=== PATIENT | female | born 1960 | race Caucasian/White ===

== ENCOUNTER 2022-10-28 08:06 | Day surgery (SDC) | payer BC, SELFPAY ==
[2022-10-28] VITALS (11 sets, daily range): BP systolic 99–148; BP diastolic 66–97; PULSE 50–68; RESP 14–16; TEMP 36.2–36.7; O2SAT 93–95; BMI 36.7
[2022-10-28] MEDS: LACTATED RINGERS 1000 ML 1,000 ML 100 ML IV (09:00)
[2022-10-28] MEDS: SODIUM CHLORIDE 0.9 % (FLUSH) 10 ML SYRINGE IVF (09:31)
[2022-10-28] MEDS: CEFAZOLIN 2 GM in 0.9 % SODIUM CHLORIDE Mini-bag 100 ML IVPB (11:45)
--- NOTE | 2022-10-28 12:23 | PM.ORPRC ---
Procedure Note Date of procedure: 10/28/22 Procedure: PREOPERATIVE DIAGNOSIS: 1. Left knee medial meniscus tear POSTOPERATIVE DIAGNOSIS: 1. Left knee medial meniscus tear 2. 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 Left knee arthroscopic partial medial menisectomy 2. Left knee chondroplasty patellofemoral and medial compartments SURGEON: Paco Diaz M.D. IRRIGATOR: Francisco Javier Santiago PA-C. Of note, an speech language pathology assistant was critical for this case to aid in patient positioning, knee manipulation, instrument exchange, and closure. ANESTHESIA: Spinal EBL: 2ml TOURNIQUET: 20 minutes at 300 torr COMPLICATIONS: None evident INDICATIONS: The patient is a pleasant 62-year-old female who has experienced left knee pain particularly with any twisting or turning. Physical exam was concerning for medial meniscus tear, this was confirmed on MRI. Additionally, attempted nonoperative management has been tried, and failed. Thus, surgery was recommended. FINDINGS: Complex tearing of the posterior horn to midbody medial meniscus. While the posterior root had a majority still intact, there was essentially complete radial tear at the posterior horn/root junction. There is grade 3 chondromalacia broadly through the medial femoral condyle on the weight-bearing portion and extending more anterior. Some loose chondral flaps were present in this region. Lateral compartment showed healthy articular cartilage and intact lateral meniscus. ACL was present, but not is normal femoral attachment. It looks like it had fallen down and laid along the tibia. PCL was intact robust. Patellofemoral compartment showed grade 3-4 chondromalacia patella median ridge and medial facet. Also loose chondral flaps in this area as well as along the medial trochlea. DESCRIPTION OF PROCEDURE: After a thorough discussion of risks, benefits, and alternatives, the patient was brought to the operating room and placed upon the operating table. Induction of anesthesia was undertaken as previously noted. 2g iv Ancef was administered within 1 hr of incision preoperatively. Appropriate time-out was performed identifying proper patient, site, and procedure. The left lower extremity was prepped and draped in the appropriate sterile fashion using ChloraPrep. The limb was exsanguinated and tourniquet inflated. Anterolateral and anteromedial portals were established with an 11 blade, and a diagnostic arthroscopy was performed. This identified the findings as noted above. Following the diagnostic arthroscopy, a partial medial menisectomy was performed with the combination of basket forceps and a motorized shaver. Following this, the meniscus was re-probed and found to be stable. Approximately 25-30 % of the overall meniscus required resection. At this stage, the shaver was reinserted into the suprapatellar pouch and all remaining meniscal debris was evacuated. Instruments were removed, excess fluid was drained, and closure performed with 4-0 Monocryl with Steri-Strips. Dressings were applied, the tourniquet deflated, and the patient was awoken from anesthesia and transferred to the PACU in stable condition. PLAN: 1. Weightbear as tolerated operative extremity. Crutch / walker ambulation assistance PRN. Straight leg raise to be initiated starting tomorrow by the patient. 2. Ice, acetominophen and/or ibuprofen, and Percocet for pain as needed. 3. Knee range of motion and quad sets/straight leg raise regularly 4. Follow up with PA visit in 7-10 days. for a wound check. Initiate physical therapy at that time p.r.n.
[2022-10-28] MEDS: ROPIVACAINE 0.5% 30 ML 150 MG INJECTION (12:26)
--- NOTE | 2022-10-28 12:38 | W.ANESCHARGE ---
Anesthesia Charges Start Date/Time Anesthesia Start Date: 10/28/22 Anesthesia Start Time: 11:42 Stop Date/Time Anesthesia Stop Date: 10/28/22 Anesthesia Stop Time: 12:40 Summary Emergency: No
--- NOTE | 2022-10-28 13:58 | W.ANESCHARGE ---
Anesthesia Charges Start Date/Time Anesthesia Start Date: 10/28/22 Anesthesia Start Time: 11:42 Stop Date/Time Anesthesia Stop Date: 10/28/22 Anesthesia Stop Time: 12:40 Summary Emergency: No
== END 2022-10-28 14:22 | disposition home or self-care (01) ==
PROVIDERS: PCP Physician Assistant Medical; Visit Provider Orthopaedic Surgery Sports Medicine
PROC: (CPT 29870; principal; 2022-10-28 09:45)
DX: S83.232A Complex tear of medial meniscus, current injury, left knee, initial encounter (principal); M94.262 Chondromalacia, left knee
CPT/HCPCS: 29881; 01400; J0690; J1100; J2250; J2400; J2405; J2704; J2795; J3010; J7120

== ENCOUNTER 2023-01-04 11:13 | Emergency (ER) | payer BC, SELFPAY ==
[2023-01-04] VITALS (16 sets, daily range): BP systolic 125–143; BP diastolic 79–87; PULSE 52–71; RESP 18; TEMP 36.4; O2SAT 93–99; BMI 37.5
--- NOTE | 2023-01-04 12:01 | ED.GENADULT ---
HPI - General Adult General Time Seen by Provider: 12:01 Date Seen: 01/04/23 Chief complaint: Extremity Pain/Injury, Lower Stated complaint: Blood clot check Time Seen by Provider: 01/04/23 11:26 Source: patient, RN notes reviewed and old records reviewed Mode of arrival: ambulatory Limitations: no limitations History of Present Illness HPI narrative: Gabbi is a very pleasant 62-year-old female who is status post knee surgery 2 months ago an has had a recent airplane flight who comes to the emergency room with complaints of chest pain shortness of breath and lower extremity edema. Patient notes that she had unusual fluid retention and edema in her legs after she had flown to floor to 2 weeks ago. She flew back last WednesdayDecember 29 and although the edema has improved somewhat she still has some calf discomfort. She notes today that going up and down steps that she is more short of breath than normal and has chest pain when this occurs. She has no chest pain at rest. She states that she has had some mild congestion, mild cough but that has been going on for a couple weeks. She did do a COVID test this morning and it was negative. She denies a fever, vomiting, lightheadedness, dysuria. She has not had history of DVT in the past. She is currently on amlodipine and torsemide for her blood pressure. She has not had stress test in the past. She does feel like her heart is occasionally racing and pounding very hard. She denies hemoptysis or significant shortness of breath at rest. She is sleeping normally and does not need extra pillows or to be sitting up in order to sleep. No known recent exposures to illness but again recent travel. Related Data Home Medications Medication Instructions Recorded Confirmed amlodipine 5 mg tablet 5 mg PO DAILY 05/08/22 01/04/23 paroxetine HCl 20 mg tablet 20 mg PO DAILY 05/08/22 01/04/23 torsemide 10 mg tablet 10 mg PO DAILY 05/08/22 01/04/23 zolpidem 5 mg tablet 5 mg PO PRN 05/08/22 11/04/22 Previous Rx's Medication Instructions Recorded apixaban 5 mg tablet (Eliquis) 10 mg PO BID 7 days #60 tabs 01/04/23 azithromycin 250 mg tablet 250 mg PO DAILY #6 tabs 01/04/23 (Zithromax Z-Chema) Allergies Allergy/AdvReac Type Severity Reaction Status Date / Time nickel Allergy Unknown Verified 01/04/23 11:53 Review of Systems Status of ROS: Reports: 10 or more systems reviewed and unremarkable except as noted in History and below Const: Denies: fever, chills or fatigue Eyes: Denies: blurry vision ENMT: Denies: throat pain, neck pain, throat swelling or difficulty swallowing Cardio: Reports: chest pain, edema, swelling of feet/ankles and shortness of breath with exertion; Denies: palpitations, lightheadedness or shortness of breath when lying down Resp: Reports: shortness of breath GI: Denies: abdominal pain, nausea, vomiting, diarrhea or difficulty swallowing Musculo: Reports: extremity swelling; Denies: back pain, neck pain or extremity pain Integ/Breast: Reports: redness (Recent sunburn); Denies: rash or itching Neuro: Denies: headache, numbness in extremities or weakness in extremities Psych: Reports: anxiety (Recent . of cardiac cause) Endo: Denies: fatigue Allergy/Immuno: Denies: throat swelling PFSH PFSH Medical History Hypertension Surgical History H/O left wrist surgery Status post medial meniscectomy of knee (10/28/22) Family History Sister Colorectal cancer Paternal Grandfather Diabetes Paternal Grandmother Ovarian cancer Son Cancer Mother Diabetes High blood pressure Father High blood pressure Social History Smoking Status: Never smoker Do you use any of these nicotine containing products: None Second hand tobacco smoke exposure: No How often do you have a drink containing alcohol: 2-3 times a week How many standard drinks containing alcohol do you have on a typical day: 1 or 2 AUDIT-C Alcohol total score: 3 Non-prescribed substance use: denies use Caffeine: Yes (daily coffee) Exam Narrative: Exam Narrative: Patient is alert and oriented. External ears eyes nose clear. Appropriate speech in content. Neck is supple. No lymphadenopathy. Heart with a regular rate and rhythm. A kit occasional additional systole with compensatory pause. Lungs are clear with some slightly decreased breath sounds in the left lower base. Abdomen soft nontender. Lower extremity show 1+ edema. Tenderness noted in the upper calves bilaterally. Moving all extremities with good coordination. Const: Vital Signs, click to edit/add: Vital Signs - 24 hr 01/04/23 11:47 01/04/23 13:43 01/04/23 13:45 Temperature 97.5 F L Pulse Rate 64 58 L Pulse Rate [Right Pulse Oximeter] 71 Respiratory Rate 18 Blood Pressure Blood Pressure [Ri ght Upper Arm] 129/87 Pulse Oximetry 94 95 94 Oxygen Delivery Me thod Room Air Room Air 01/04/23 14:00 01/04/23 14:02 01/04/23 14:28 Temperature Pulse Rate 55 L 61 56 L Pulse Rate [Right Pulse Oximeter] Respiratory Rate Blood Pressure 126/79 Blood Pressure [Ri ght Upper Arm] Pulse Oximetry 95 96 93 Oxygen Delivery Me thod 01/04/23 14:31 01/04/23 14:33 01/04/23 14:45 Temperature Pulse Rate 55 L 52 L 57 L Pulse Rate [Right Pulse Oximeter] Respiratory Rate Blood Pressure 143/81 H Blood Pressure [Ri ght Upper Arm] Pulse Oximetry 98 98 99 Oxygen Delivery Me thod 01/04/23 15:00 01/04/23 15:02 01/04/23 15:15 Temperature Pulse Rate 59 L 59 L 59 L Pulse Rate [Right Pulse Oximeter] Respiratory Rate Blood Pressure 125/83 Blood Pressure [Ri ght Upper Arm] Pulse Oximetry 96 96 97 Oxygen Delivery Me thod 01/04/23 15:30 01/04/23 15:32 01/04/23 15:45 Temperature Pulse Rate 59 L 63 60 Pulse Rate [Right Pulse Oximeter] Respiratory Rate Blood Pressure 136/81 Blood Pressure [Ri ght Upper Arm] Pulse Oximetry 97 97 97 Oxygen Delivery Me thod 01/04/23 16:02 Temperature Pulse Rate Pulse Rate [Right Pulse Oximeter] Respiratory Rate Blood Pressure 142/86 H Blood Pressure [Ri ght Upper Arm] Pulse Oximetry Oxygen Delivery Me thod Documenting provider has reviewed patient's vital signs: yes Course Course Hospital Course: At this time differential bright diagnosis includes but is not limited to acute coronary syndrome, cardiac arrhythmia, congestive heart failure, fluid overload, PE/DVT, COVID, URI, anxiety, amlodipine reaction. Will check a D-dimer and lower extremity ultrasound to rule out possibility PE given recent travel. Will also place patient on manager cardiac and do a rule out EKG/troponin set. Finally labs will be drawn include a CBC, comprehensive, TSH, Magnesium, urinalysis. Vital Signs Vital signs: Initial Vital Signs Temperature 97.5 F L 01/04/23 11:47 Temperature Source Temporal Artery Scan 01/04/23 11:47 Pulse Rate 71 01/04/23 11:47 Respiratory Rate 18 01/04/23 11:47 Blood Pressure 129/87 01/04/23 11:47 Blood Pressure Mean 101 01/04/23 11:47 Blood Pressure Position Sitting 01/04/23 11:47 Pulse Oximetry 94 01/04/23 11:47 Oxygen Delivery Method 01/04/23 11:47 Vital Signs Temperature 97.5 F L 01/04/23 11:47 Pulse Rate 71 01/04/23 11:47 Respiratory Rate 18 01/04/23 11:47 Blood Pressure 129/87 01/04/23 11:47 Pulse Oximetry 94 01/04/23 11:47 Oxygen Delivery Method 01/04/23 11:47 Temperature 97.5 F L 01/04/23 11:47 Pulse Rate 60 01/04/23 15:45 Respiratory Rate 18 01/04/23 11:47 Blood Pressure 142/86 H 01/04/23 16:02 Pulse Oximetry 97 01/04/23 15:45 Oxygen Delivery Method 01/04/23 13:43 Medical Decision Making [facility] Narrative Medical decision making narrative: 1. Pneumonia-pneumonia noted on chest CT. Will treat with Zithromax 500 mg today followed by 250 mg daily for 4 days. Note patient has reassuring oxygen levels. EKGs without evidence of acute changes and troponin was negative x2. Patient with chest wall tenderness and thus likely related to coughing and not underlying cardiac cause. 2. DVT-patient noted to have small left DVT distal to the knee. Patient had been on plane rides and had noticed increased lower extremity edema. No evidence of congestive heart failure but there is a small clot in the deep system on the left. Patient will be placed on Eliquis 10 mg b.i.d. for 7 days and then will decrease of 5 mg daily. Will have patient check with her primary to see how long she will need to be on this medication. No past history of DVT or history of factor 5 Leiden or other hypercoagulable pathologies. Fortunately no evidence of PE on the CT today. 2. Disposition -home at this time. Will be on antibiotic and anticoagulation. Return to the emergency room for worsening symptoms and as needed. Medical Records Medical records reviewed: Yes I reviewed the patient's medical records Lab Data Lab results reviewed: Yes I reviewed the patient's lab results Labs: Lab Results 01/04/23 01/04/23 01/04/23 Range/Units 13:35 13:35 13:35 WBC 6.82 (4.50-11.00) K/uL RBC 4.64 (4.00-5.20) m/uL Hgb 13.9 (12.0-16.0) gm/dL Hct 42.3 (33.0-51.0) % MCV 91 (80-100) fL MCH 30 (26-34) pg MCHC 33 (32-36) gm/dL RDW Coeff of Juliana 12.9 (11.5-15.5) % Plt Count 345 (140-440) K/uL Neut % (Auto) 61.2 (42.0-72.0) % Lymph % (Auto) 23.6 (20-44) % [place] % (Auto) 11.3 H (0.0-11.0) % Eos % (Auto) 3.7 (0.0-7.0) % Baso % (Auto) 0.1 (0.0-3.0) % Neut # (Auto) 4.17 (1.7-7.0) K/uL Lymph # (Auto) 1.61 (0.90-2.90) K/uL [place] # (Auto) 0.80 (0.00-0.90) K/UL Eos # (Auto) 0.25 (0.00-0.50) K/uL Baso # (Auto) 0.01 (0.00-0.30) K/uL Sodium 138 (135-149) mmol/L Potassium 3.8 (3.6-5.1) mmol/L Chloride 105 (96-114) mmol/L Carbon Dioxide 26 (20-32) mmol/L BUN 16 (7-30) mg/dL Creatinine 0.7 (0.5-1.5) mg/dL Estimated Creat Clear 44.95 Estimated GFR 97 ml/min Glucose 97 (60-115) mg/dL Calcium 9.2 (8.4-10.6) mg/dL Magnesium 1.9 (1.5-2.6) mg/dL Total Bilirubin 0.5 (0.1-1.5) mg/dL AST 28 (12-35) U/L ALT 30 (4-35) U/L Alkaline Phosphatase 72 (40-150) U/L NT-Pro-B Natriuret Pep < 20 pg/mL Total Protein 8.1 (6.0-8.3) g/dL Albumin 4.4 (3.3-5.0) g/dL 25-OH Vitamin D Total 51 (30-80) ng/mL TSH 1.170 (0.270-4.200) uIU/mL Urine Color (Yellow) Urine Appearance (Clear) Urine pH (5.0-8.5) Ur Specific [place] (1.000-1.030) Urine Protein (Negative) Urine Glucose (UA) (Negative) Urine Ketones (Negative) Urine Blood (Negative) Urine Nitrite (Negative) Urine Bilirubin (Negative) Urine Urobilinogen (0.2-1.0) Ur Leukocyte Esterase (Negative) Urine RBC (0-2) Urine WBC (0-5) Ur Squamous Epith Cells (None-Few) Urine Bacteria (None) SARS-CoV-2 (PCR) (Negative) Influenza Type A (PCR) (Negative) Influenza Type B (PCR) (Negative) POC Creatinine (0.6-1.3) mg/dl POC Troponin I (0.01-0.04) ng/ml Blood Type 01/04/23 01/04/23 01/04/23 Range/Units 13:35 13:40 14:00 WBC (4.50-11.00) K/uL RBC (4.00-5.20) m/uL Hgb (12.0-16.0) gm/dL Hct (33.0-51.0) % MCV (80-100) fL MCH (26-34) pg MCHC (32-36) gm/dL RDW Coeff of Juliana (11.5-15.5) % Plt Count (140-440) K/uL Neut % (Auto) (42.0-72.0) % Lymph % (Auto) (20-44) % [place] % (Auto) (0.0-11.0) % Eos % (Auto) (0.0-7.0) % Baso % (Auto) (0.0-3.0) % Neut # (Auto) (1.7-7.0) K/uL Lymph # (Auto) (0.90-2.90) K/uL [place] # (Auto) (0.00-0.90) K/UL Eos # (Auto) (0.00-0.50) K/uL Baso # (Auto) (0.00-0.30) K/uL Sodium (135-149) mmol/L Potassium (3.6-5.1) mmol/L Chloride (96-114) mmol/L Carbon Dioxide (20-32) mmol/L BUN (7-30) mg/dL Creatinine (0.5-1.5) mg/dL Estimated Creat Clear Estimated GFR ml/min Glucose (60-115) mg/dL Calcium (8.4-10.6) mg/dL Magnesium (1.5-2.6) mg/dL Total Bilirubin (0.1-1.5) mg/dL AST (12-35) U/L ALT (4-35) U/L Alkaline Phosphatase (40-150) U/L NT-Pro-B Natriuret Pep pg/mL Total Protein (6.0-8.3) g/dL Albumin (3.3-5.0) g/dL 25-OH Vitamin D Total (30-80) ng/mL TSH (0.270-4.200) uIU/mL Urine Color (Yellow) Urine Appearance (Clear) Urine pH (5.0-8.5) Ur Specific [place] (1.000-1.030) Urine Protein (Negative) Urine Glucose (UA) (Negative) Urine Ketones (Negative) Urine Blood (Negative) Urine Nitrite (Negative) Urine Bilirubin (Negative) Urine Urobilinogen (0.2-1.0) Ur Leukocyte Esterase (Negative) Urine RBC (0-2) Urine WBC (0-5) Ur Squamous Epith Cells (None-Few) Urine Bacteria (None) SARS-CoV-2 (PCR) Negative SARS-CoV-2 (Negative) Influenza Type A (PCR) Negative PCR FLU A (Negative) Influenza Type B (PCR) Negative PCR FLU B (Negative) POC Creatinine 0.8 (0.6-1.3) mg/dl POC Troponin I 0.01 (0.01-0.04) ng/ml Blood Type 01/04/23 01/04/23 01/04/23 Range/Units 14:07 14:40 15:45 WBC (4.50-11.00) K/uL RBC (4.00-5.20) m/uL Hgb (12.0-16.0) gm/dL Hct (33.0-51.0) % MCV (80-100) fL MCH (26-34) pg MCHC (32-36) gm/dL RDW Coeff of Juliana (11.5-15.5) % Plt Count (140-440) K/uL Neut % (Auto) (42.0-72.0) % Lymph % (Auto) (20-44) % [place] % (Auto) (0.0-11.0) % Eos % (Auto) (0.0-7.0) % Baso % (Auto) (0.0-3.0) % Neut # (Auto) (1.7-7.0) K/uL Lymph # (Auto) (0.90-2.90) K/uL [place] # (Auto) (0.00-0.90) K/UL Eos # (Auto) (0.00-0.50) K/uL Baso # (Auto) (0.00-0.30) K/uL Sodium (135-149) mmol/L Potassium (3.6-5.1) mmol/L Chloride (96-114) mmol/L Carbon Dioxide (20-32) mmol/L BUN (7-30) mg/dL Creatinine (0.5-1.5) mg/dL Estimated Creat Clear Estimated GFR ml/min Glucose (60-115) mg/dL Calcium (8.4-10.6) mg/dL Magnesium (1.5-2.6) mg/dL Total Bilirubin (0.1-1.5) mg/dL AST (12-35) U/L ALT (4-35) U/L Alkaline Phosphatase (40-150) U/L NT-Pro-B Natriuret Pep pg/mL Total Protein (6.0-8.3) g/dL Albumin (3.3-5.0) g/dL 25-OH Vitamin D Total (30-80) ng/mL TSH (0.270-4.200) uIU/mL Urine Color Yellow (Yellow) Urine Appearance Clear (Clear) Urine pH 5.5 (5.0-8.5) Ur Specific [place] 1.010 (1.000-1.030) Urine Protein Negative (Negative) Urine Glucose (UA) Negative (Negative) Urine Ketones Negative (Negative) Urine Blood Trace-intact A (Negative) Urine Nitrite Negative (Negative) Urine Bilirubin Negative (Negative) Urine Urobilinogen 0.2 (0.2-1.0) Ur Leukocyte Esterase Negative (Negative) Urine RBC 0-2 (0-2) Urine WBC 0-2 (0-5) Ur Squamous Epith Cells None (None-Few) Urine Bacteria None (None) SARS-CoV-2 (PCR) (Negative) Influenza Type A (PCR) (Negative) Influenza Type B (PCR) (Negative) POC Creatinine (0.6-1.3) mg/dl POC Troponin I 0.00 L (0.01-0.04) ng/ml Blood Type A Positive Imaging Data Chest x-ray: Attestation: I have reviewed the pertinent imaging results. My impression: No obvious infiltrates Radiologist's impression: Cardiovascular and mediastinum: Heart size and vasculature are normal in caliber and appearance.? Mediastinum is within normal limits.? Lungs and pleural space: Lungs are clear.? No sign of infiltrate or mass.? No sign of pleural effusion.? No pneumothorax.? Bones and soft tissues: No significant findings.? IMPRESSION: Unremarkable chest. Venous US: Attestation: I have reviewed the pertinent imaging results. CT scan - chest: Attestation: I have reviewed the pertinent imaging results. Radiologist's impression: Heart and vasculature: Contrast opacification of the pulmonary arterial tree is adequate. No sign of pulmonary embolism. Heart size is normal. Thoracic aorta and pulmonary artery are normal in caliber. Lungs and pleura: No suspicious nodules. Strandy ground-glass densities in the lower lobes, left greater than right. No pleural effusions, pleural thickening, or pneumothorax. Lymph nodes/mediastinum: No mediastinal, hilar, or axillary adenopathy. Chest wall: No masses. Upper abdomen: Small hiatal hernia. Bones: Unremarkable for age. IMPRESSION: No pulmonary embolism. Strandy ground-glass densities in the lower lobes, left greater than right, likely represent atelectasis; however, infection could appear similar in the correct clinical setting. Small hiatal hernia. ECG Data Attestation: I personally reviewed and interpreted this ECG as follows: Prior ECG tracings: not available for review Interpretation: EKG 1. By my read shows sinus rhythm at a rate of 60. No acute ST or T-wave changes are noted. Discharge Plan Discharge Clinical Impression: DVT (deep venous thrombosis), Pneumonia Patient Disposition: Home, Self-Care Condition: Improved Additional Instructions: Start blood thinner today. Try to keep leg elevated. Suggest compression stockings for both legs. Start Zithromax today for respiratory infection. Follow-up with your primary MD in the next 10 days for recheck. There will need to be a plan in place for how long you will be on your blood thinner. Return to the emergency room for worsening symptoms. Prescriptions: New Eliquis 5 mg tablet 10 mg PO BID 7 Days Qty: 60 0RF Rx Instructions: 10 mg or 2 tablets twice daily for 7 days. Thereafter 5 mg twice a day. azithromycin [Zithromax Z-Chema] 250 mg tablet 250 mg PO DAILY Qty: 6 0RF Rx Instructions: 2 tablets today or 500 mg. On days 2 through 5 1 tablet or 250 mg daily. No Action zolpidem 5 mg tablet 5 mg PO PRN paroxetine HCl 20 mg tablet 20 mg PO DAILY amlodipine 5 mg tablet 5 mg PO DAILY torsemide 10 mg tablet 10 mg PO DAILY Follow Up/Referrals: Aleshia Henderson PA-C [Primary Care Provider] - Stand Alone Forms: [employer] Info Instructions
--- NOTE | 2023-01-04 12:19 | CRLHL7_ITS ---
For Patients: As a result of the Century Cures Act, medical imaging exams and procedure reports are released immediately into your electronic medical record. You may view this report before your referring provider. If you have questions, please contact your health care provider. INDICATION: CHEST PAIN COUGH TECHNIQUE: Chest 1 view. COMPARISON: None. FINDINGS: Cardiovascular and mediastinum: Heart size and vasculature are normal in caliber and appearance. Mediastinum is within normal limits. Lungs and pleural space: Lungs are clear. No sign of infiltrate or mass. No sign of pleural effusion. No pneumothorax. Bones and soft tissues: No significant findings. IMPRESSION: Unremarkable chest. Dictated by: Nathan Do MD @ 01/04/2023 13:33:53 (Electronically Signed)
--- NOTE | 2023-01-04 12:19 | CRLHL7_ITS ---
For Patients: As a result of the Century Cures Act, medical imaging exams and procedure reports are released immediately into your electronic medical record. You may view this report before your referring provider. If you have questions, please contact your health care provider. INDICATION: Bilateral calf pain and swelling with recent travel TECHNIQUE: Ultrasound venous duplex lower extremity bilateral. Compression venous exam was performed using magaña-scale, color Doppler, and spectral Doppler imaging. COMPARISON: None. FINDINGS: There is questionable filling defect within the left posterior tibial vein with some with limited compressibility. The right posterior tibial veins are not visualized. Otherwise, the bilateral common femoral, superficial femoral and popliteal veins are compressible throughout their lengths. IMPRESSION: Questionable noncompressibility and filling defect within the left posterior tibial vein likely representing a small thrombus. Mildly limited evaluation of the distal lower extremities. No other proximal deep venous thrombosis is appreciated. Findings discussed with Jeni Brown at 2:24 p.m. January 04, 2023 Dictated by Micheal Roque MD @ 01/04/2023 2:25:29 PM (Electronically Signed)
[2023-01-04 13:44] LABS: Basophils Absolute Auto 0.01 K/uL (0.00-0.30); Basophils Percent Auto 0.1 % (0.0-3.0); Eosinophils Absolute Auto 0.25 K/uL (0.00-0.50); Eosinophils Percent Auto 3.7 % (0.0-7.0); Hematocrit 42.3 % (33.0-51.0); Hemoglobin* 13.9 gm/dL (12.0-16.0); Immature Granulocytes Abs Auto 0.01 K/uL (0.00-0.30); Immature Granulocytes Pct Auto 0.1 %; Lymphocytes Absolute Auto 1.61 K/uL (0.90-2.90); Lymphocytes Percent Auto 23.6 % (20-44); Mean Corpuscular HGB Conc 33 gm/dL (32-36); Mean Corpuscular Hemoglobin 30 pg (26-34); Mean Corpuscular Volume 91 fL (80-100); Monocytes Percent Auto 11.3 % (0.0-11.0); Neutrophils Absolute Auto 4.17 K/uL (1.7-7.0); Neutrophils Percent Auto 61.2 % (42.0-72.0); Platelet Count* 345 K/uL (140-440); RDW Coefficient of Variation % 12.9 % (11.5-15.5); Red Blood Count 4.64 m/uL (4.00-5.20); White Blood Count* 6.82 K/uL (4.50-11.00)
--- NOTE | 2023-01-04 13:46 | CRLHL7_ITS ---
For Patients: As a result of the Century Cures Act, medical imaging exams and procedure reports are released immediately into your electronic medical record. You may view this report before your referring provider. If you have questions, please contact your health care provider. INDICATION: DVT, shortness of breath. TECHNIQUE: CT chest PE was acquired with 95 cc Isovue 370 IV contrast. COMPARISON: Chest radiograph from the same day. FINDINGS: Heart and vasculature: Contrast opacification of the pulmonary arterial tree is adequate. No sign of pulmonary embolism. Heart size is normal. Thoracic aorta and pulmonary artery are normal in caliber. Lungs and pleura: No suspicious nodules. Strandy ground-glass densities in the lower lobes, left greater than right. No pleural effusions, pleural thickening, or pneumothorax. Lymph nodes/mediastinum: No mediastinal, hilar, or axillary adenopathy. Chest wall: No masses. Upper abdomen: Small hiatal hernia. Bones: Unremarkable for age. IMPRESSION: No pulmonary embolism. Strandy ground-glass densities in the lower lobes, left greater than right, likely represent atelectasis; however, infection could appear similar in the correct clinical setting. Small hiatal hernia. Please note that all CT scans at this facility use dose modulation, iterative reconstruction, and/or weight-based dosing when appropriate to reduce radiation dose to as low as reasonably achievable. Dictated by Cruz Mack MD @ 01/04/2023 3:18:26 PM (Electronically Signed)
[2023-01-04 13:47] LABS: Slide Review Reflex No; Troponin, Point-of-Care* 0.01 ng/ml (0.01-0.04)
[2023-01-04 14:09] LABS: Creatinine, Point-of-Care* 0.8 mg/dl (0.6-1.3)
[2023-01-04 14:10] LABS: Chloride* 105 mmol/L (96-114); Potassium* 3.8 mmol/L (3.6-5.1); Sodium* 138 mmol/L (135-149)
[2023-01-04 14:12] LABS: Bilirubin Total* 0.5 mg/dL (0.1-1.5); Creatinine* 0.7 mg/dL (0.5-1.5); Est. Creatinine Clearance* 44.95; Estimated Glomerular Filt Rate 97 ml/min
[2023-01-04 14:13] LABS: Alanine Aminotransferase* 30 U/L (4-35); Alkaline Phosphatase* 72 U/L (40-150); Aspartate Amino Transferase* 28 U/L (12-35); Blood Urea Nitrogen* 16 mg/dL (7-30); Calcium* 9.2 mg/dL (8.4-10.6); Carbon Dioxide* 26 mmol/L (20-32); Glucose* 97 mg/dL (60-115); Total Protein* 8.1 g/dL (6.0-8.3)
[2023-01-04 14:14] LABS: Magnesium* 1.9 mg/dL (1.5-2.6)
[2023-01-04 14:22] LABS: NT Pro B Type NatriureticPept* < 20 pg/mL
[2023-01-04 14:22] LABS: PCR FLU A Negative PCR FLU A (Negative); PCR FLU B Negative PCR FLU B (Negative)
[2023-01-04 14:25] LABS: Albumin* 4.4 g/dL (3.3-5.0)
[2023-01-04 14:28] LABS: SARS PCR* Negative SARS-CoV-2 (Negative)
[2023-01-04 14:40] LABS: Vitamin D 25 Hydroxy* 51 ng/mL (30-80)
[2023-01-04 15:03] LABS: Appearance Urine Clear (Clear); Bilirubin Urine Negative (Negative); Blood Urine Trace-intact (Negative); Color Urine Yellow (Yellow); Glucose Urine Negative (Negative); Ketones Urine Negative (Negative); Leukocyte Esterase Urine Negative (Negative); Nitrite Urine Negative (Negative); Protein Urine Negative (Negative); Urobilinogen Urine 0.2 (0.2-1.0); pH Urine 5.5 (5.0-8.5)
[2023-01-04 15:22] LABS: RBC Urine 0-2 (0-2); WBC Urine 0-2 (0-5)
== END 2023-01-04 16:16 | disposition home or self-care (01) ==
PROVIDERS: Emergency Provider Family Medicine; PCP Physician Assistant Medical
DX: J18.9 Pneumonia, unspecified organism (principal); I82.409 Acute embolism and thrombosis of unspecified deep veins of unspecified lower extremity
CPT/HCPCS: 36415; 71045; 71260; 80053; 81001; 82306; 82565; 83735; 83880; 84443; 84484; 85025; 86900; 86901; 87631; 93005; 93970; 99284; 99285; Q9967

== ENCOUNTER 2023-05-17 08:18 | Outpatient (CLI) | payer BC, SELFPAY ==
--- NOTE | 2023-05-17 08:33 | W.ANESCHARGE ---
Anesthesia Charges Start Date/Time Anesthesia Start Date: 05/17/23 Anesthesia Start Time: 09:42 Stop Date/Time Anesthesia Stop Date: 05/17/23 Anesthesia Stop Time: 10:12
--- NOTE | 2023-05-17 10:12 | W.ANESCHARGE ---
Anesthesia Charges Start Date/Time Anesthesia Start Date: 05/17/23 Anesthesia Start Time: 09:42 Stop Date/Time Anesthesia Stop Date: 05/17/23 Anesthesia Stop Time: 10:12
== END 2023-05-17 08:19 | disposition home or self-care (01) ==
LOC: OP CLINIC 08:19
PROVIDERS: PCP Physician Assistant Medical; Visit Provider Internal Medicine Gastroenterology
DX: Z12.11 Encounter for screening for malignant neoplasm of colon (principal)
CPT/HCPCS: 45378; 811; 812; J2704

== ENCOUNTER 2023-09-06 12:11 | Emergency (ER) | payer MEDICARE, BC, SELFPAY ==
[2023-09-06 12:42] VITALS: BP 126/78; PULSE 58; RESP 18; TEMP 36.6; O2SAT 97; BMI 32.8
--- NOTE | 2023-09-06 13:20 | CRLHL7_ITS ---
For Patients: As a result of the Cures Act, medical imaging exams and procedure reports are released immediately into your electronic medical record. You may view this report before your referring provider. If you have questions, please contact your health care provider. INDICATION: Cough. TECHNIQUE: Chest 2 views. COMPARISON: Chest radiograph 01/04/2023. FINDINGS: No focal consolidation, pleural effusion, or pneumothorax. Heart size upper limits of normal. Normal pulmonary vascularity. Degenerative changes of the spine. IMPRESSION: No acute cardiopulmonary findings. Dictated by Bernadette Mandel MD @ 09/06/2023 2:19:20 PM (Electronically Signed)
[2023-09-06 14:26] VITALS: BP 131/85; PULSE 61; RESP 18; O2SAT 97
--- NOTE | 2023-09-06 14:45 | ED_ITS ---
HPI - General Adult General Chief complaint: Cough Stated complaint: Cough, short of breath Time Seen by Provider: 09/06/23 14:31 History of Present Illness HPI narrative: This 63-year-old female comes in reporting cough for the past 3 weeks. Initially she does report some sore throat and ear pain and states that she did have a fever when the symptoms 1st began 3 weeks ago. Currently she just has persistent cough and feels short of breath at times. She also has some laryngitis and hoarse voice. She has been using [id number] medications without much relief. Related Data Home Medications Medication Instructions Recorded Confirmed amlodipine 5 mg tablet 5 mg PO DAILY 05/08/22 09/06/23 paroxetine HCl 20 mg tablet 20 mg PO DAILY 05/08/22 09/06/23 torsemide 10 mg tablet 10 mg PO DAILY 05/08/22 09/06/23 zolpidem 5 mg tablet 5 mg PO PRN 05/08/22 11/04/22 Previous Rx's Medication Instructions Recorded acetaminophen 300 mg-codeine 30 mg 1 tab PO Q6H PRN pain #20 tabs 09/06/23 tablet methylprednisolone 4 mg tablets in See Rx Instructions PO .COMPLEX 09/06/23 a dose pack (Medrol (Chema)) #21 ea Allergies Allergy/AdvReac Type Severity Reaction Status Date / Time nickel Allergy Unknown Verified 01/04/23 11:53 Review of Systems Status of ROS: Reports: 10 or more systems reviewed and unremarkable except as noted in History and below Narrative: Constitutional: No fevers, no weight gain or loss. Eyes: No discharge. No vision changes. HENT: No congestion, no sore throat, no ear pain. Cardiovascular: No chest pain, no palpitations. Respiratory: No shortness of breath, no wheezes. Frequent nonproductive cough. Gastrointestinal: No abdominal pain, no vomiting, no diarrhea. Genitourinary: No dysuria, no hematuria. Musculoskeletal: Normal range of motion. Skin: No rashes, no pruritis. Neurological: No dizziness, weakness, sensory change, speech change. Endo/Heme/Allergies: No bruising or bleeding. No polydipsia. Pysch: no suicidality, no anxiety, no insomnia. All other systems reviewed and are negative. [facility] Medical History Hypertension Surgical History H/O left wrist surgery Status post medial meniscectomy of knee (10/28/22) Family History Sister Colorectal cancer Paternal Grandfather Diabetes Paternal Grandmother Ovarian cancer Son Cancer Mother Diabetes High blood pressure Father High blood pressure Social History Smoking Status: Never smoker Do you use any of these nicotine containing products: None Second hand tobacco smoke exposure: No How often do you have a drink containing alcohol: never How often do you have six or more drinks on one occasion: Never AUDIT-C Alcohol total score: 0 Non-prescribed substance use: denies use Caffeine: Yes (daily coffee) Exam Narrative: Exam Narrative: Constitutional: Well-developed, well-nourished, no acute distress. HEENT: Normocephalic, atraumatic. Neck: Normal range of motion. Nontender. Supple. Heart: Regular. No murmurs. Normal rate. Intact distal pulses. Lungs: Clear to auscultation. No chest discomfort. No wheezes, rhonchi, or rales. Abdomen: Normal bowel sounds. Nontender. No rebound tenderness. Genitalia: Deferred. Back: No midline tenderness. Normal range of motion. Extremities: Normal range of motion. No injury. Skin: Intact. No rash. Warm. No erythema or pallor. Neurologic: No altered sensation. No weakness. Alert and oriented. Psychiatric: No suicidality. No anxiety or depression. No insomnia. Nursing notes and vitals signs are reviewed. Const: Vital Signs, click to edit/add: Vital Signs - 24 hr 09/06/23 12:42 09/06/23 14:26 Temperature 97.8 F Pulse Rate [Right Pulse Oximeter] 58 L 61 Respiratory Rate 18 18 Blood Pressure [Ri ght Upper Arm] 126/78 131/85 Pulse Oximetry 97 97 Oxygen Delivery Me thod Room Air Room Air Course Vital Signs Vital signs: Initial Vital Signs Temperature 97.8 F 09/06/23 12:42 Temperature Source Temporal Artery Scan 09/06/23 12:42 Pulse Rate 58 L 09/06/23 12:42 Respiratory Rate 18 09/06/23 12:42 Blood Pressure 126/78 09/06/23 12:42 Blood Pressure Mean 94 09/06/23 12:42 Blood Pressure Position Sitting 09/06/23 12:42 Pulse Oximetry 97 09/06/23 12:42 Oxygen Delivery Method Room Air 09/06/23 12:42 Vital Signs Temperature 97.8 F 09/06/23 12:42 Pulse Rate 58 L 09/06/23 12:42 Respiratory Rate 18 09/06/23 12:42 Blood Pressure 126/78 09/06/23 12:42 Pulse Oximetry 97 09/06/23 12:42 Oxygen Delivery Method Room Air 09/06/23 12:42 Temperature 97.8 F 09/06/23 12:42 Pulse Rate 61 09/06/23 14:26 Respiratory Rate 18 09/06/23 14:26 Blood Pressure 131/85 09/06/23 14:26 Pulse Oximetry 97 09/06/23 14:26 Oxygen Delivery Method Room Air 09/06/23 14:26 Medical Decision Making MDM Narrative Medical decision making narrative: This patient comes in with the report of cough for the past 3 weeks. She also has some laryngitis. She has been using Mucinex but states that she feels that caused her voice to become more thin. She does not have any other symptoms now except for cough and a subjective feeling of shortness of breath. She does arrive with normal vital signs. Chest x-ray shows no sign of acute pulmonary disease and nasal pharyngeal swab is negative for COVID, influenza, and RSV. Most likely this patient has an upper respiratory infection from a viral source. She did receive a prescription for Medrol Dosepak and Tylenol 3 for symptomatic relief. Lab Data Labs: Lab Results 09/06/23 Range/Units 14:25 SARS-CoV-2 (PCR) Negative SARS-CoV-2 (Negative) Influenza Type A (PCR) Negative PCR FLU A (Negative) Influenza Type B (PCR) Negative PCR FLU B (Negative) RSV (PCR) Negative PCR RSV (Negative) Imaging Data Chest x-ray: Radiologist's impression: No acute cardiopulmonary findings. Discharge Plan Discharge Clinical Impression: Acute upper respiratory infection Patient Disposition: Home, Self-Care Condition: Stable Additional Instructions: Take medications as needed and directed. Follow up with MD or return if worsening symptoms happen. Prescriptions: New acetaminophen-codeine 300-30 mg tablet 1 tab PO Q6H PRN (Reason: pain) Qty: 20 0RF methylprednisolone [Medrol (Chema)] 4 mg tablets,dose pack See Rx Instructions .ROUTE .COMPLEX Qty: 21 0RF Rx Instructions: orally per package directions No Action zolpidem 5 mg tablet 5 mg PO PRN paroxetine HCl 20 mg tablet 20 mg PO DAILY amlodipine 5 mg tablet 5 mg PO DAILY torsemide 10 mg tablet 10 mg PO DAILY Follow Up/Referrals: Aleshia Henderson PA-C [Primary Care Provider] - Stand Alone Forms: MyHealth Info Instructions
[2023-09-06 15:14] LABS: PCR FLU A Negative PCR FLU A (Negative); PCR FLU B Negative PCR FLU B (Negative); PCR RSV Negative PCR RSV (Negative)
[2023-09-06 15:32] LABS: SARS PCR* Negative SARS-CoV-2 (Negative)
== END 2023-09-06 16:00 | disposition home or self-care (01) ==
PROVIDERS: Emergency Provider Emergency Medicine Emergency Medical Services; PCP Physician Assistant Medical
DX: J06.9 Acute upper respiratory infection, unspecified (principal)
CPT/HCPCS: 71046; 87631; 99283; 99284

== ENCOUNTER 2024-11-27 07:10 | Day surgery (SDC) | payer MEDICARE, BC, SELFPAY ==
[2024-11-27] VITALS (17 sets, daily range): BP systolic 84–120; BP diastolic 48–72; PULSE 45–66; RESP 14–16; TEMP 36–36.8; O2SAT 90–97; BMI 38.0
--- OUTSIDE RECORDS SUMMARY | 2024-11-27 07:14 | XMS_ITS | Continuity of Care Document ---
Author Organization [facility] Address [address] [place] [address] Phone Care Team Providers Care Welder Experimental Name Role Phone Stephanie Bello CNP Unavailable Unavailable Allergies, Adverse Reactions, Alerts Substance Reaction Status Criticality hydrocodone Active No Information Medications Medication Instructions Dosage Effective Dates (start - stop) Status Comments hydrocodone 5 mg-acetaminophen 500 mg capsule take 1 - 2 Capsule by oral route every 4 - 6 hours as needed - Active amitriptyline 25 mg tablet take 1 tablet by oral route every day at bedtime 25 MG - No Longer Active baclofen 10 mg tablet take 1 tablet by oral route at hs. - No Longer Active Neurontin 300 mg capsule take 1 capsule by oral route at hs - No Longer Active amitriptyline 25 mg tablet take 1 tablet by oral route every day at bedtime 25 MG - No Longer Active Procedures Procedure Date Offic/outpt E&m Estab Mod-hi 2 14 Offic/outpt E&m Estab Low-mod 4 Inj Anes Agent; Stellate Gangl 14 Stellate Ganglion Fluoro Needle NonSpine Offic Cons New/estab Mod-hi 60 14 QA DONE Advance Directives Directive Yes / No Effective Date File Name No Information Encounters Encounter Description Practice Location Reason(s) For Visit Diagnoses Date Provider Providers Copied on Encounter Offic/outpt E&m Estab Mod-hi 2 Eugene [facility], [address], [place], [place], [id number], [place] tel:[phone] [facility] No Information 4 Eugenia Brown. [address], [place], [address], [place]. tel:[phone] Referring Provider: LOPEZ PHYS. Offic/outpt E&m Estab Low-mod [facility], [facility], [address], [place], [place], [id number], [place] [phone] [facility] No Information 4 Eugenia Brown. [address], [place], [place], [address], [place]. tel:[phone] Referring Provider: LOPEZ [facility], [address], [place], [address], [place] tel:[phone] [facility] [place] No Information 4 Alexandra Arreguin. [address], [place], [place], [id number], [place]. tel:[phone] Referring Provider: Kallie WEBBER, [address], [place], [address] . tel:[phone] [facility], [address], [place], [place], [id number], [place] tel:[phone] [facility] [place] No Information 4 Alexandra Arreguin. [address], [place], [place], [id number], [place]. tel:[phone] Referring Provider: LOPEZ PHYS. Offic Cons New/estab Mod-hi 60 [facility], [facility], [address], [place], [place], [id number], [place] tel:[phone] [facility] No Information 6-201 4 Eugenia Brown. [address], [place], [address], [place]. tel:[phone] Referring Provider: LOPEZ MCCAULEY Family History Family Member Type Diagnosis Age At Onset No Information Payers Payer name Insurance type Covered republican ID Gui kat(s) Blue Plus BL [id number] Social History Type Description Quantity Date Captured Comments Alcohol Use Details Caffeine Use Details Unknown Tobacco Use Status No Information Smoking Status Never Smoker Non-Smoking Tobacco Use Details : No Details Available : No Details Available Sex Female Chief Complaint And Reason For Visit No Information Reason For Referral Reason For Referral No Information History Of Present Illness Encounter Date Complaint History Of Prese nt Illness No Information Functional Status Date Functional Assessmen t No Information Instructions Date Instruction Additional Infor mation No Information Assessments Type Assessment Date No Information Patient Care Teams Name Effective Dates (start - stop) Status Members No Information
--- OUTSIDE RECORDS SUMMARY | 2024-11-27 07:14 | XMS_ITS | Clinical Summary ---
Author Organization [employer] Address [place], [place] [address] Care Team Providers Care Guardian Ad Litem Name Role Phone Aleshia Henderson Primary Care Provider Allergies No known active allergies Medications CPAPIndications:OS A (obstructive sleep apnea),Snoring,Fat igue, unspecified type New CPAP machine for home use at pressure: 5-16 cmw , Heated humidifier x 1 q 5 yr, Humidifier chamber x 1 q 6 mo, Full face mask x1 q 3mos, with cushion x 1 q mo, Heated tubing x 1 q 3 mo, Headgear x 1 q 6 mo, Filters: Disposable x 2 q mo non-disposable filters x1 q 6mo, Length of Need: 99 months, Frequency of use: Daily 1 Device 11 02/06/20 21 Active overnight oximetryIndication s:Nocturnal hypoxemia For home use. On Room Air yes; On Oxygen no ; On CPAP yes; On BiPAP no 1 Device 03/03/20 21 Active torsemide (DEMADEX) 10 mg tabletIndications: Ankle edema, bilateral Take 1 Tablet (10 mg) by mouth once daily. 90 Tablet 3 02/21/20 24 Active amLODIPine (NORVASC) 2.5 mg tabletIndications: HTN (hypertension) TAKE 1 TABLET BY MOUTH ONCE DAILY. 90 Tablet 1 07/19/20 24 Active nystatin powder (MYCOSTATIN) powderIndications: Yeast infection APPLY 1 STRIP TOPICALLY TO AFFECTED AREA(S) THREE TIMES DAILY. 60 g 1 08/21/20 24 Active propranoloL (INDERAL) 20 mg tabletIndications: Essential tremor TAKE 1 TAB ONCE DAILY 1/2 TO 1 HOUR PRIOR TO ACTIVITY/PAPER WORK. CAN TAKE DAILY TO HELP WITH SHAKING 60 Tablet 08/21/20 24 Active topiramate (TOPAMAX) 25 mg tabletIndications: Class 2 severe obesity with body mass index (BMI) of 35 to 39.9 with serious comorbidity (HC) TAKE 1 TABLET BY MOUTH TWO TIMES DAILY. 180 Tablet 09/12/20 24 Active celecoxib (CELEBREX) 200 mg capsuleIndications :Primary osteoarthritis of left knee Take 1 Capsule (200 mg) by mouth once daily with a meal. 90 Capsule 1 08/28/20 24 025 Discontin ued(*Izabela ent states no longer taking) Active Problems Problem Noted Date Diagnosed Date Class 2 severe obesity with body mass index (BMI) of 35 to 39.9 with serious comorbidity 11/13/2024 Primary osteoarthritis of left knee 02/23/2024 Overview (08/30/2024): Oct 2022 left knee meniscus Surgery. February 2024: Left knee cortisone injection by Dr. Bright. Jul 2024: Repeat left knee cortisone injection, minor and brief benefit. August 29, 2024: Synvisc ONE injection. Deep vein thrombosis (DVT) o f proximal vein of left lower extremity, unspecified chronicity 02/21/2024 Skin cancer 07/23/2022 Overview (11/01/2024): 10/27/24 left chest, superficial/nodular BCC, NEEDS EXCISION 07/21/22: Left ear, basal cell carcinoma nodular type. 09/07/[address] Mancini Pap smear for cervical cancer screening 10/18/19 Overview (11/26/2021): 10/2021 NIL/HPV negative. Plan: routine screening Excessive or frequent menstruation 05/11/2007 Encounters Date Type Department Care Team Description 11/16/2024 2:55 PM NEWS LIBRARY DIRECTOR Phone Office Visit [facility] [[email or web address] [address] [place] [address] Karlene Villarreal PA UTI 11/16/2024 Travel 11/13/2024 9:10 AM NEWS LIBRARY DIRECTOR Office Visit [facility] [[email or web address]] [address] [place] [address] Aleshia Henderson PA Preoperative Exam (Total L knee) 11/12/2024 Travel 11/03/2024 Telephone [facility] [address] [place] [address] Isabel Fisher MD Appointment 11/01/2024 Telephone [facility] [address] [place] [address] Isabel Fisher MD Abnormal Lab Results 10/27/2024 10:40 AM NEWS LIBRARY DIRECTOR Office Visit [facility] [address] [place] [address] Isabel Fisher MD Derm Problem 10/27/2024 Travel 10/23/2024 Travel 09/20/2024 10:00 AM NEWS LIBRARY DIRECTOR Ancillary Procedure [facility] [[email or web address]] [address] [place] [address] 09/19/2024 Travel 09/08/2024 Refill [facility] [[email or web address]] [address] [place] [address] Aleshia Henderson PA Refill Request (Topiramate) 08/29/2024 3:15 PM NEWS LIBRARY DIRECTOR Ancillary Procedure [facility] [[email or web address]] [address] [place] [address] 08/29/2024 1:50 PM NEWS LIBRARY DIRECTOR Office Visit [facility] [[email or web address]] [address] [place] [address] King Bright MD Musculoskeletal Problem (Follow-up LEFT Knee pain/Had cortisone injection last on 07/24/2024/Discuss possible Synvisc Injection vs the Rooster Comb) 08/28/2024 11:50 AM NEWS LIBRARY DIRECTOR Office Visit [facility] [[email or web address]] [address] [place] [address] Aleshia Henderson PA Knee Pain/problem (L knee pain - had injection with Dr May but didn't last long); Anxiety (Small things set it off) 08/28/2024 Travel from Last 3 Months Immunizations Name Administration Dates Next Due COVID-19 vaccine (Pfizer-Bio NTech 30mcg/0.3mL) 12YO+ RACHEL-SUCROSE PF, MDV 10/30/2021 Td (Age >=7 Years) 09/19/1998 Tdap 10/24/2010 Family History Medical History Relation Name Comments Diabetes Father Hypertension Father Osteoarthritis Father Cancer-ovarian Maternal Grandmother Diabetes Mother Hypertension Mother Cancer Sister rectal Cancer Son hodgkins Cancer-breast No Family History Relation Name Status Comments Father Alive Maternal Grandmother Mother Sister Son Social History Tobacco Use Types Packs/Day Years Used Date Smoking Tobacco: Never Smokeless Tobacco: Never Tobacco Cessation:Counseling Given: Yes Alcohol Use Standard Drinks/Week Comments Yes 0 (1 standard drink = 0.6 oz pur e alcohol) socially, weekends PHQ-2 Answer Date Recorded PHQ-2 TOTAL SCORE 0 02/21/2024 Social Connections Answer Date Recorded Do you often feel lonely or isolated from those around you? 0 02/21/2024 Financial Resource Strain Answer Date R ecorded Difficulty of Paying Living Expenses 3 02/21/2024 Difficulty of Paying Living Expenses Not on file 02/21/2024 Food Insecurity Answer Date Recorded Do you worry your food will run out before you are able to buy more? 1 02/21/2024 Transportation Needs Answer Date Record ed Does lack of transportation keep you from medica l appointments? 1 02/21/2024 Does lack of transportation keep you from work, meetings or getting things that you need? 1 02/21/2024 Housing Stability Answer Date Recorded What is your housing situation today? 1 02/21/2024 Utilities Answer Date Recorded Do you have trouble paying f or utilities (for example, heat, electricity, water, phone)? 1 02/21/2024 Comments No Sex and Gender Information Value Date Recorded Sex Assigned at Not on file Legal Sex Female 5:41 AM NEWS LIBRARY DIRECTOR Gender Identity Not on file Sexual Orientation Not on file Obstetrics History Last Filed Vital Signs Vital Sign Reading Time Taken Comments Blood Pressure 123/82 11/13/2024 9:13 AM NEWS LIBRARY DIRECTOR Pulse 69 11/13/2024 9:13 AM NEWS LIBRARY DIRECTOR Temperature 36.6 C (97.9 F) 01/13/2023 10:00 AM CDT Respiratory Rate - - Oxygen Saturation 95% 08/29/2024 2:01 PM NEWS LIBRARY DIRECTOR Inhaled Oxygen Concentration - - Weight 94.3 kg (208 lb) 11/13/2024 9:13 AM NEWS LIBRARY DIRECTOR Height 158 cm (5' 2.21) 02/21/2024 8:57 AM CDT Body Mass Index 37.79 02/21/2024 8:57 AM CDT Plan of Treatment Upcoming Encounters Date Type Department Care Team (Late st Contact Info) Description 01/18/2025 9:30 AM CDT Procedure Only [facility] [address] [facility] [address] [place], [place] [address] Isabel Fisher MD [address] [facility] [address] [place], [place] [id number] Health Maintenance Due Date Last Done Comments Pneumococcal series for age 50+ (1 of 1 - PCV) 2008 Zoster (shingles) series for age 50+ (1 of 2) 2008 RSV vaccine for adults or (1 - Risk 60-74 years 1-dose series) 2018 Tetanus booster 10/24/2020 10/24/2010, 09/19/1998 COVID-19 vaccine series ( season) 2024 10/30/2021, 02/01/2021, 01/11/2021 Influenza for age 65+ 06/18/2024 BMI (ht and wt on same day) for age 18+ 02/20/2025 02/21/2024, 05/10/2023, 01/13/2023, Additional history exists Depression screening for age 12+ 02/21/2025 02/22/2024, 02/22/2024, 02/21/2024, Additional history exists Medicare Wellness for age 65+ 02/21/2025 02/21/2024 Mammogram for age 45-75 09/20/2025 09/20/20, 10/08/2023, 10/05/2022, Additional history exists Lipids for age 45-75 02/20/2029 02/21/2024, 09/11/2022, 11/03/2021, Additional history exists Colonoscopy through age 75 05/17/203305/17, 05/17/2023, 05/17/2023 Tdap Completed 10/24/2010 Hepatitis C screening for ag e 18-79 Completed 12/08/2016 DEXA/DXA scan for age 65+ Completed 02/22/2024 Procedures Procedure Name Priority Date/Time Associated Diagnosis Comments URINE CULTURE Routine 11/16/2024 1:02 PM NEWS LIBRARY DIRECTOR Lower urinary tract symptoms (LUTS) URINALYSIS MICROSCOPIC Routine 11/16/2024 1:02 PM NEWS LIBRARY DIRECTOR Lower urinary tract symptoms (LUTS) URINALYSIS MACROSCOPIC - [facility] ONLY POC DIP ([facility]) Routine 11/16/2024 1:02 PM NEWS LIBRARY DIRECTOR Lower urinary tract symptoms (LUTS) EKG 12 LEAD Routine 11/14/2024 2:38 PM NEWS LIBRARY DIRECTOR HTN (hypertension) MD READING EKG - NO CHARGE, COMP ONLY Routine 11/14/2024 2:37 PM NEWS LIBRARY DIRECTOR HTN (hypertension) BASIC METABOLIC PANEL Routine 11/13/2024 10:03 AM NEWS LIBRARY DIRECTOR HTN (hypertension) HEMOGLOBIN Routine 11/13/2024 10:03 AM NEWS LIBRARY DIRECTOR HTN (hypertension) PATH TISSUE EXAM Routine 10/27/2024 10:4 0 AM NEWS LIBRARY DIRECTOR Neoplasm of uncertain behavior XR MAMMO MANJEET BILAT SCREEN Routine 09/20/2024 10:06 AM NEWS LIBRARY DIRECTOR Visit for screening mammogram XR KNEE 3 VIEWS LEFT Routine 08/29/2024 3:13 PM NEWS LIBRARY DIRECTOR Primary osteoarthritis of left knee Chronic pain of left knee XR DXA BONE DENSITY 2 SITES AXIAL Routine 02/22/2024 9:21 AM CDT Post menopausal syndrome Unspecified menopausal and perimenopausal disorder LIPID PANEL W REFLEX MEASURED LDL Routine 02/21/2024 10:03 AM CDT Screening cholesterol level COLONOSCOPY SCREENING Routine 05/17/2023 12:00 AM CDT Screening for colon cancer ANTI HCV Routine 12/08/2016 8:43 AM NEWS LIBRARY DIRECTOR Need for hepatitis C screening test from Last 3 Months or Most Recently Relevant to Health Maintenance Results * (ABNORMAL) POCT Urinalysis Dipstick Only (11/16/2024 1:02 PM NEWS LIBRARY DIRECTOR) PH 5.5 5.0 - 8.0 [facility] SPECIFIC GRAVITY 1.015 1.001 - 1.035 [facility] GLUCOSE NEGATIVE NEGATIVE [facility] BILIRUBIN NEGATIVE NEGATIVE [facility] KETONES NEGATIVE NEGATIVE [facility] OCCULT BLOOD NEGATIVE NEGATIVE [facility] PROTEIN NEGATIVE NEGATIVE [facility] NITRITE NEGATIVE NEGATIVE [facility] LEUKOCYTE ESTERASE TRACE(A) NEGATIVE [facility] Urine URINE SPECIMEN / Unknown 11/16/2024 1:02 PM NEWS LIBRARY DIRECTOR 11/16/2024 1:03 PM NEWS LIBRARY DIRECTOR Karlene GARCIA URINE Final Result [facility] [address] [place] [address], [facility] [address] [place] [address] * URINALYSIS MICROSCOPIC (11/16/2024 1:02 PM NEWS LIBRARY DIRECTOR) RBC 0-2 0-2, None Seen /HPF 11/16/2024 11:48 PM NEWS LIBRARY DIRECTOR [facility] WBC 3-5 0-2, 3-5, None Seen /HPF 11/16/2024 11:48 PM NEWS LIBRARY DIRECTOR [facility] BACTERIA None Seen None Seen, Rare, Few Bacteria/ HPF 11/16/2024 11:48 PM NEWS LIBRARY DIRECTOR [facility] EPITHELIAL CELLS None Seen None Seen, Few Epi/HPF 11/16/2024 11:48 PM NEWS LIBRARY DIRECTOR [facility] HYALINE CASTS 0-2 0-2, 3-5 /LPF 11/16/2024 11:48 PM NEWS LIBRARY DIRECTOR [facility] Urine URINE SPECIMEN / Unknown Non-Blood / Unknown 11/16/2024 1:02 PM NEWS LIBRARY DIRECTOR 11/16/2024 1:02 PM NEWS LIBRARY DIRECTOR Karlene GARCIA URINE Final Result Performing Organization Address [facility]/ZIP Co de Phone Number [facility] [address] [address], [place] * URINE CULTURE (11/16/2024 1:02 PM NEWS LIBRARY DIRECTOR) CULTURE 10-50,000 CFU/mL of multiple organisms, probable contaminants 11/18/2024 10:00 AM NEWS LIBRARY DIRECTOR [facility] Urine URINE SPECIMEN / Unknown Non-Blood / Unknown 11/16/2024 1:02 PM NEWS LIBRARY DIRECTOR 11/16/2024 1:02 PM NEWS LIBRARY DIRECTOR us Karlene GARCIA MICROBIOLOGY Final Result Performing Organization Address [facility] Co de Phone Number [facility] [address] [address], [place] * EKG 12 LEAD (11/14/2024 2:38 PM NEWS LIBRARY DIRECTOR) us Aleshia GARCIA EKG ORD Final R esult * MD READING EKG - NO CHARGE, COMP ONLY (11/14/2024 2:37 PM NEWS LIBRARY DIRECTOR) us Aleshia GARCIA PB - PROVIDER READINGS Final Result * HEMOGLOBIN (11/13/2024 10:03 AM NEWS LIBRARY DIRECTOR) HEMOGLOBIN 14.3 11.7 - 15.5 g/dL [facility] Blood BLOOD SPECIMEN / Unknown 11/13/2024 10:03 AM NEWS LIBRARY DIRECTOR 11/13/2024 10:03 AM NEWS LIBRARY DIRECTOR Aleshia GARCIA HEMATOLOGY Final R esult Performing Organization Address City/[facility]/ZIP Co de Phone Number [employer] [facility] [address] [place] [address], [place] [phone] [facility] [address] [place] [address] * (ABNORMAL) BASIC METABOLIC PANEL (11/13/2024 10:03 AM NEWS LIBRARY DIRECTOR) [facility] GLUCOSE 107(H) 65 - 99 mg/dL [facility] Comment: Fasting reference interval For someone without known diabetes, a glucose value between 100 and 125 mg/dL is consistent with prediabetes and should be confirmed with a follow-up test. UREA NITROGEN (BUN) 17 7 - 25 mg/dL [facility] CREATININE 0.73 0.50 - 1.05 mg/dL [facility] EGFR 91 > OR = 60 mL/min/1. 73m2 [facility] BUN/CREATININE RATIO SEE NOTE: 6 - 22 (calc) [facility] Comment: Not Reported: BUN and Creatinine are within reference range. SODIUM 142 135 - 146 mmol/L [facility] POTASSIUM 4.4 3.5 - 5.3 mmol/L [facility] CHLORIDE 105 98 - 110 mmol/L [facility] CARBON DIOXIDE 26 20 - 32 mmol/L [facility] ELECTROLYTE BALANCE 11 7 - 17 mmol/L (calc) [facility] CALCIUM 9.7 8.6 - 10.4 mg/dL [facility] Blood BLOOD SPECIMEN / Unknown 11/13/2024 10:03 AM NEWS LIBRARY DIRECTOR 11/13/2024 10:03 AM NEWS LIBRARY DIRECTOR Aleshia GARCIA CHEMISTRY Final R esult Performing Organization Address City/[facility]/ZIP Co de Phone Number [employer] [facility] [address] [place] [address], [facility] [address] [place] [address] * PATH TISSUE EXAM (10/27/2024 10:40 AM NEWS LIBRARY DIRECTOR) Case Report Pathology Report Case: [id number] Authorizing Provider: Isabel Fisher, Collected: 10/27/2024 1040 MD Ordering Location: [facility] Received: 10/27/2024 1559 Clinic Pathologist: Mae Salazar MD Specimen: Skin, left chest 11/01/2024 10:15 AM NEWS LIBRARY DIRECTOR [facility] [employer] [facility] Final Diagnosis A) SKIN, LEFT CHEST, BIOPSY: 1. Basal cell carcinoma, superficial and nodular types: a. Perineural invasion: Absent b. Margins: Positive 11/01/2024 10:15 AM NEWS LIBRARY DIRECTOR [facility] Clinical Information Rule out NMSC 11/01/2024 10:15 AM NEWS LIBRARY DIRECTOR [facility] [employer] [facility] Gross Description A) Received in formalin, labeled with the patient's name and left chest, is a 0.9 x 0.6 cm skin biopsy. There is a 0.9 x 0.6 cm flat ingram lesion. The specimen is inked yellow, trisected and entirely submitted in one cassette. SJM 10/30/2024 11/01/2024 10:15 AM NEWS LIBRARY DIRECTOR [facility] [employer] [facility] Microscopic Description The final diagnosis is based on microscopic examination of appropriate sections of all specimens. 11/01/2024 10:15 AM NEWS LIBRARY DIRECTOR [facility] Additional Information [facility]ed at [facility] - [address], [place] [address] 11/01/2024 10:15 AM [facility] [employer] [facility] Other SPECIMEN FROM SKIN / Unknown Non-Blood / Unknown 10/27/2024 10:40 AM NEWS LIBRARY DIRECTOR 10/27/2024 3:59 PM NEWS LIBRARY DIRECTOR Isabel Fisher MD PATHOLOGY/CYTOLOGY nal Result [facility] [address] [place] [address], [place] * XR MAMMO MANJEET BILAT SCREEN (09/20/2024 10:06 AM NEWS LIBRARY DIRECTOR) Anatomical Region Laterality Modality BREASTS, Breast Left, Breast Right Bilateral Mammography Impressions 09/20/2024 4:35 PM NEWS LIBRARY DIRECTOR There is no radiographic evidence for malignancy. Recommend annual mammograms. MAMMOGRAM ASSESSMENT: ACR 1 Negative PATIENTS: You will also receive a letter with your examination results in an easy to read format. If you have questions about your results, please contact your referring provider. Narrative 09/20/2024 4:35 PM NEWS LIBRARY DIRECTOR For Patients: As a result of the Cures Act, medical imaging exams and procedure reports are released immediately into your electronic medical record. You may view this report before your referring provider. If you have questions, please contact your health care provider. XR MAMMO MANJEET BILAT SCREEN [[id number]] CLINICAL HISTORY: This is an asymptomatic 64 y.o. patient. INDICATION FOR EXAM: Mammogram Screening. TECHNIQUE: CC & MLO views were obtained. This study was evaluated with the assistance of Computer-Aided Detection. Breast Tomosynthesis was used in interpretation. COMPARISON FILM: Yes 10/08/23 [facility] 10/05/22 [facility] FINDINGS: There are scattered areas of fibroglandular density. There are no dominant masses, suspicious micro calcifications or areas of architectural distortion. us Aleshia GARCIA MAMMO Final R esult * XR KNEE 3 VIEWS LEFT (08/29/2024 3:13 PM NEWS LIBRARY DIRECTOR) Anatomical Region Laterality Modality KNEES, KNEE L Computed Radiogr aphy 08/30/2024 2:17 PM NEWS LIBRARY DIRECTOR Impressions 08/30/2024 2:17 PM NEWS LIBRARY DIRECTOR Osteoarthritis, as above Dictated by Say Cabrera MD @ 08/30/2024 2:17:14 PM (Electronically Signed) Narrative 08/30/2024 2:17 PM NEWS LIBRARY DIRECTOR For Patients: As a result of the Cures Act, medical imaging exams and procedure reports are released immediately into your electronic medical record. You may view this report before your referring provider. If you have questions, please contact your health care provider. INDICATION: Chronic left knee pain TECHNIQUE: Weightbearing AP and lateral views of the left knee as well as a sunrise view COMPARISON: 11/27/2021 FINDINGS: No obvious joint effusion. Advanced medial compartment osteoarthritis and mild patellofemoral joint osteoarthritis. No chondrocalcinosis. Procedure Note Say Cabrera MD - 08/30/2024 For Patients: As a result of the Cures Act, medical imagingexams and procedure reports are released immediately into your electronicmedical record. You may view this report before your referring provider.If you have questions, please contact your health care provider. INDICATION: Chronic left knee pain TECHNIQUE: Weightbearing AP and lateral views of the left knee as well as a sunriseview COMPARISON: 11/27/2021 FINDINGS: No obvious joint effusion. Advanced medial compartment osteoarthritis andmild patellofemoral joint osteoarthritis. No chondrocalcinosis. IMPRESSION: Osteoarthritis, as above Dictated by Say Cabrera MD @ 08/30/2024 2:17:14 PM (Electronically Signed) King Bright MD GENERAL IMAGING Final Res ult * (ABNORMAL) XR DXA BONE DENSITY 2 SITES AXIAL (02/22/2024 9:21 AM CDT) Anatomical Region Laterality Modality Spine, HIPS, HIPL, HIPR Other Impressions 02/27/2024 2:35 PM CDT Osteopenia. RECOMMENDATIONS: The National Osteoporosis Foundation recommends pharmacologic treatment for patients with T-scores of -2.5 or less, patients with prior history of fragility fractures, or patients with 10-year probability of greater than 3% at hips or greater than 20% of suffering major osteoporotic fractures. Recommend continued optimization of calcium and vitamin D intake through dietary means and/or supplementation and regular exercise. Repeat scan recommended in 3-5 years. Aleshia Henderson PA-C [facility] 02/27/2024 Narrative 02/27/2024 2:35 PM CDT For Patients: Results are automatically released to your [employer] account once available, in compliance with federal regulations. This means that you may see your results before your provider has had a chance to review them. Please allow 2-3 business days for your provider to comment on the results. XR DXA Bone Mineral Density (BMD) EXAM LOCATION: [facility] [address] [facility] [address] PATIENT NAME: Gabbi De Los Santos DATE OF : 1960 EXAM DATE: 02/22/2024 REQUESTING PROVIDER: Aleshia Henderson PA GENDER AT : female HEIGHT: 5' 2.21 (02/21/2024) WEIGHT: 205 lb 9.6 oz (02/21/2024) MENOPAUSAL STATUS: Postmenopausal RACE/ETHNICITY: White RISK FACTORS: White Race CURRENT MEDICATION FOR BONE LOSS: NONE INDICATION: Post menopausal syndrome; Unspecified menopausal and perimenopausal disorder COMPARISON DATE(S): None DXA scans are compared to prior studies for a patient only when the two (or more) studies were performed on the same scanner. It is not possible to compare data generated on one scanner to data from another because there are not standards in DXA equipment. This applies even if the two scanners are made by the same crane service technician. PROCEDURE: Dual-energy x-ray absorptiometry performed with routine technique. Reporting is completed in the form of a T-score. The T-score represents the standard deviation from peak bone mass based on young healthy adult. A Z-score is used for diagnosis in premenopausal women, and for men under the age of 50. FINDINGS: RESULT LUMBAR SPINE L1 - L4 BMD: 1.196 g/cm2 T-Score: + 0.0 Z-Score: + 0.7 Change from prior: None RESULTS FEMUR Left femoral neck BMD: 0.812 g/cm2 T-Score: - 1.6 Z-Score: - 0.8 Change from prior: None Right femoral neck BMD: 0.842 g/cm2 T-Score: - 1.4 Z-Score: - 0.5 Change from prior: None Left hip BMD: 0.942 g/cm2 T-Score: - 0.5 Z-Score: + 0.0 Change from prior: None Right hip BMD: 0.962 g/cm2 T-Score: - 0.4 Z-Score: + 0.2 Change from prior: None WHO criteria: Normal: T-score at or above -1 SD Osteopenia: T-score between -1.1 and -2.4 SD Osteoporosis: T-score at or below -2.5 SD FRAX RISK CALCULATION (USED FOR OSTEOPENIA ONLY): 10-year probability of major osteoporotic fracture: 8.5%. 10-year probability of hip fracture: 1.0%. Aleshia GARCIA DEXA Final R esult * (ABNORMAL) LIPID PANEL W REFLEX MEASURED LDL (02/21/2024 10:03 AM CDT) [facility] CHOLESTEROL,TOTAL 223(H) 100 - 199 mg/dL 02/21/2024 6:30 PM CDT [facility] Comment: Cholesterol, Total Reference Ranges Desirable <200 mg/dL Borderline 200-239 mg/dL High >=240 mg/dL TRIGLYCERIDES 145 <150 mg/dL 02/21/2024 6:30 PM CDT [facility] HDL CHOLESTEROL 41 >40 mg/dL 6:30 PM CDT [facility] NON-HDL CHOLESTEROL 182(H) <145 mg/dl 02/21/2024 6:30 PM CDT [facility] CHOL/HDL RATIO 5.44(H) <4.50 02/21/2024 6:30 PM CDT [facility] LDL CHOLESTEROL 153(H) <=130 mg/dL 02/21/2024 6:30 PM CDT [facility] VLDL CHOLESTEROL 29 <=30 mg/dL 02/21/2024 6:30 PM CDT [facility] PROVIDER ORDERED STATUS RANDOM 02/21/2024 6:30 PM CDT [facility] Blood BLOOD SPECIMEN / Unknown Venipuncture / Unknown 02/21/2024 10:03 AM CDT 02/21/2024 10:04 AM CDT Aleshia GARCIA CHEMISTRY Final R esult Performing Organization Address City/[facility]/ZIP Co de Phone Number [facility] [employer] [address] [place] [address], * COLONOSCOPY SCREENING (05/17/2023 12:00 AM CDT) Aleshia GARCIA GI PROCEDURE ORD Final Result * ANTI HCV [41426.2] (12/08/2016 8:43 AM NEWS LIBRARY DIRECTOR) HEPATITIS C ANTIBODY Non-Reacti ve Non-Reacti ve 12/08/2016 1:43 PM NEWS LIBRARY DIRECTOR [facility] [employer] [facility] Blood BLOOD SPECIMEN / Unknown Venipuncture / Unknown 12/08/2016 8:43 AM NEWS LIBRARY DIRECTOR 12/08/2016 8:43 AM NEWS LIBRARY DIRECTOR Narrative [facility] - 12/08/2016 1:43 PM NEWS LIBRARY DIRECTOR Antibodies to HCV not detected; does not exclude the possibility of exposure to HCV. Aleshia GARCIA SEND OUTS Final R esult Performing Organization Address [facility] Co de Phone Number [facility] [address] [place] [address], from Last 3 Months or Most Recently Relevant to Health Maintenance Insurance BLUE CROSS [employer] BLUE MR PB ONLY [facility] Care Teams Guardian Ad Litem Relationship Specialty Start Date End Date Aleshia Henderson PA [address] [place], [place] [id number] PCP - General Family Practice 11/30/16
[2024-11-27] MEDS: LACTATED RINGERS 1000 ML 1,000 ML 100 ML IV ×3 (07:15→11:50)
[2024-11-27] MEDS: SODIUM CHLORIDE 0.9 % (FLUSH) 10 ML SYRINGE IVF (07:35)
--- NOTE | 2024-11-27 07:41 | W.PM.H&PU ---
History & Physical Update History & Physical Update H&P Reviewed and patient assessed: No changes noted
[2024-11-27] MEDS: ACETAMINOPHEN 500 MG TABLET 1000 MG PO (07:50)
[2024-11-27] MEDS: OXYCODONE (CR) 10 MG TAB.ER.12H PO (07:50)
--- NOTE | 2024-11-27 08:51 | SUR.PREOP ---
TIME?OUT:?0851 PT/Liliana Chauhan RN/Dr. Hua MDA?VERIFICATION?OF?SURGICAL?SITE left knee,?PROCEDURE,?AND?CONSENT OBTAINED?PRIOR?TO?INVASIVE?PROCEDURE.
[2024-11-27] MEDS: MIDAZOLAM HCL 1 MG/ML inj IVP (08:52)
[2024-11-27] MEDS: fentaNYL 100 MCG/2 ML inj IVP (08:52)
[2024-11-27] MEDS: TRANEXAMIC ACID 100 MG/ML INJ 1000 MG IV (09:29)
[2024-11-27] MEDS: CEFAZOLIN 2 GM in 0.9 % SODIUM CHLORIDE Mini-bag 100 ML IVPB (09:29)
--- NOTE | 2024-11-27 09:31 | W.PM.NB ---
Nerve Block Nerve Block Time Seen by Provider: 08:53 Date Seen: 11/27/24 Type of block requested by surgeon for post-operative analgesia: adductor canal Side: left Time out performed: Yes Verification of patient name: Yes Verification of date of : Yes Site marking: site marked Name of person performing procedure: Hua Continuous monitoring Was continuous monitoring of O2 sat, B/P, monitoring manager, recorded every 15 minutes?: Yes Procedure Checklist: sterile prep, needles and gloves Ultrasound guided. Images saved: Yes Medications given in 5ml increments after negative aspiration: Marcaine %: 0.25 mL: 15 Needle gauge: 20 Precedex (mcg): 25 Patient tolerated procedure well: Yes Block Charges Block Charge (with Pro Fee): Femoral Nerve Use of Ultrasound Machine for Block: Yes- US Guidance/pain block
--- NOTE | 2024-11-27 09:32 | P.ANES_ITS ---
Anesthesia Charges Start Date/Time Anesthesia Start Date: 11/27/24 Anesthesia Start Time: 09:04 Stop Date/Time Anesthesia Stop Date: 11/27/24 Anesthesia Stop Time: 10:59 Coding CPT Codes CPT Codes: ANESTH KNEE ARTHROPLASTY - 50566 ([id number]) P2 - PATIENT W/MILD SYST DISEASE, QK - DIGITAL PRINT OPERATOR 2-4 CNCRNT ANES PROC, QX - MULT AU MATIC OPERATOR SVC W/ MD MED DIRECTION
--- NOTE | 2024-11-27 09:32 | W.PM.NB ---
Nerve Block Nerve Block Time Seen by Provider: 08:53 Date Seen: 11/27/24 Type of block requested by surgeon for post-operative analgesia: geniculars Side: left Time out performed: Yes Verification of patient name: Yes Verification of date of : Yes Site marking: site marked Name of person performing procedure: Hua Continuous monitoring Was continuous monitoring of O2 sat, B/P, front desk monitor, recorded every 15 minutes?: Yes Procedure Checklist: sterile prep, needles and gloves Ultrasound guided. Images saved: Yes Medications given in 5ml increments after negative aspiration: Marcaine %: 0.25 mL: 9 Needle gauge: 25 Patient tolerated procedure well: Yes Block Charges Block Charge (with Pro Fee): Genicular Nerve Block
--- NOTE | 2024-11-27 09:32 | W.ANESCHARGE ---
Anesthesia Charges Start Date/Time Anesthesia Start Date: 11/27/24 Anesthesia Start Time: 09:04 Stop Date/Time Anesthesia Stop Date: 11/27/24 Anesthesia Stop Time: 10:59 Coding CPT Codes CPT Codes: ANESTH KNEE ARTHROPLASTY - 33977 ([id number]) P2 - PATIENT W/MILD SYST DISEASE, QK - REGISTERED PHLEBOTOMIST PART TIME 2-4 CNCRNT ANES PROC, QX - ELECTRONIC IMAGING SYSTEM OPERATOR SVC W/ MD MED DIRECTION
--- NOTE | 2024-11-27 10:27 | P.ORPRC_ITS ---
Procedure Note Date of procedure: 11/27/24 Procedure: PREOPERATIVE DIAGNOSIS: 1. Left knee osteoarthritis, primary, severe POSTOPERATIVE DIAGNOSIS: 1. Left knee osteoarthritis, primary, severe PROCEDURE: 1. Left total knee arthroplasty - subvastus; Press-Fit all 3 components SURGEON: Paco Diaz MD. TURNAROUND PLANNER: JAIME Baker - Of note, a skilled reference library assistant was critical for this case to aid in patient positioning, tissue retraction, limb manipulation/positioning, and closure. ANESTHESIA: Spinal anesthetic EBL: 50ml IMPLANTS: DePuy J&J uncemented TKA - Attune with Affixium patella component PS femur size 4 narrow Size 3 tibia 5 mm poly spacer 35 mm Affixium patella TOURNIQUET: 75 minutes at 300 torr COMPLICATIONS: None evident INDICATIONS: The patient is a pleasant 64-year-old who has experienced severe left knee pain and difficulty bearing weight. Workup included x-rays which revealed severe osteoarthrosis in the knee. Given the deformity, the dysfunction, and the pain, as well as the failure of nonoperative management, recommendation was made for surgery. FINDINGS: Full-thickness chondral loss diffusely throughout the medial compartment. To lesser degree patellofemoral and lateral compartments respectively. Degenerative meniscus pathology medial greater than lateral. Large effusion upon entering the joint. DESCRIPTION OF PROCEDURE: Following a thorough discussion of risks, benefits, and alternatives consent was obtained and the left knee was marked. The patient was brought to the operating room and placed supine on the operating table. Induction of anesthesia was undertaken. 2 g IV Ancef and 1 g tranexamic acid was administered within 1 hr of incision preoperatively. Proper time-out was performed identifying proper patient, site, procedure. The operative extremity was prepped and draped in the appropriate sterile fashion using ChloraPrep after the patient was positioned supine with all bony prominences well padded. A longitudinal, anterior, midline skin incision was made starting approximately 3cm proximal to the superior pole of the patella and advanced distal to the tibial tubercle. A sub vastus approach was utilized . After mobilizing the p atella, retropatellar fatpad was resected and the synovium in the suprapatellar pouch excised to visualize the anterior femoral cortex. Femoral preparation was performed via an intramedullary guide. Step drill allowed access into the femoral canal. The distal cutting guide was placed with 5? of valgus and 11 mm cut on the distal femur due to a 5-7 degree flexion contracture. Femur was sized using a anterior referencing guide in 3? of external rotation. This found have a best fit with the sizing noted above. The 4 in 1 cutting block was then placed, and the distal femur shaped accordingly. The box cut was then created and the trial implant inserted to confirm appropriate fit. We turned our attention to the proximal tibia. Extramedullary guide was utilized for cutting with the goal of being 90 degree cut from the mechanical axis of the tibia in the varus/valgus plane utilizing tibial crest as the primary alignment. Initially a 1 mm resection was performed from the medial tibial plateau. An additional 2 mm of tibial resection was needed to achieve proper balance in both flexion & extension. Ultimately, balancing was achieved in both flexion and extension in both varus and valgus. The knee was able to achieve full extension comfortably. It was sized to be a best fit with as noted above. Patellar prep showed initial measurement/thickness of 23 mm. It was resected back to approximately 14 mm. The patella prep was completed with drilling and a trial placed. At this stage, trial implants were removed, the tibia and femoral and patellar components were opened and inserted. The real poly spacer was opened and inserted. A 3 min Betadine soak performed. Finally, a final irrigation round with normal saline was performed. Closure performed with 0 PDS and #0 Stratafix for the quad tendon/retinaculum. 2-0 Vicryl/Stratafix for the subcutaneous and 4-0 Monocryl for subcuticular closure. Dressings were applied and the patient was awoken from anesthesia after the tourniquet deflated and transferred the PACU in stable condition. A skilled reference library assistant was critical for this case to aid in patient positioning, tissue retraction, bone exposure, limb manipulation/positioning, patient safety, and closure. PLAN: 1. Weight bear as tolerated operative extremity. 2. 23 hr perioperative antibiotics. 3. Ice. 4. PT/OT consults for ambulation assistance/mobility education. 5. Social work consult for discharge planning. 6. DVT prophylaxis with at SCDs, and aspirin twice daily.
--- NOTE | 2024-11-27 11:02 | CRLHL7_ITS ---
For Patients: As a result of the Cures Act, medical imaging exams and procedure reports are released immediately into your electronic medical record. You may view this report before your referring provider. If you have questions, please contact your health care provider. Indication: Left TKA Technique: Two views left knee Findings/Impression: Hardware from a left total knee arthroplasty is in satisfactory position. Bone alignment is normal. No sign of acute fracture. Postop changes are within normal limits. Dictated by Nathan Guajardo MD @ 11/27/2024 12:06:00 PM (Electronically Signed)
--- NOTE | 2024-11-27 11:07 | P.ANES_ITS ---
Anesthesia Charges Start Date/Time Anesthesia Start Date: 11/27/24 Anesthesia Start Time: 09:04 Stop Date/Time Anesthesia Stop Date: 11/27/24 Anesthesia Stop Time: 10:59 Coding CPT Codes CPT Codes: ANESTH KNEE ARTHROPLASTY - 48946 ([id number]) P2 - PATIENT W/MILD SYST DISEASE, QK - ELECTRICAL ENGINEER 2-4 CNCRNT ANES PROC, QX - MANAGER REGIONAL SALES SVC W/ MD MED DIRECTION
--- NOTE | 2024-11-27 11:07 | W.ANESCHARGE ---
Anesthesia Charges Start Date/Time Anesthesia Start Date: 11/27/24 Anesthesia Start Time: 09:04 Stop Date/Time Anesthesia Stop Date: 11/27/24 Anesthesia Stop Time: 10:59 Coding CPT Codes CPT Codes: ANESTH KNEE ARTHROPLASTY - 21106 ([id number]) P2 - PATIENT W/MILD SYST DISEASE, QK - ADOBE FLEX DEVELOPER 2-4 CNCRNT ANES PROC, QX - SUPPLY CHAIN SYSTEMS MANAGER SVC W/ MD MED DIRECTION
== END 2024-11-27 14:30 | disposition home or self-care (01) ==
LOC: OR 07:12
PROVIDERS: PCP Physician Assistant Medical; Visit Provider Orthopaedic Surgery Sports Medicine
PROC: (CPT 27447; principal; 2024-11-27 09:30)
DX: M17.12 Unilateral primary osteoarthritis, left knee (principal); G89.18 Other acute postprocedural pain
CPT/HCPCS: 27447; 01402; 64447; 64454; 73560; 76942; 97110; 97116; 97161; A9270; C1776; J0665; J0690; J1100; J1885; J2250; J2405; J2704; J3010; J7120

== ENCOUNTER 2024-12-05 14:34 | Outpatient (CLI) | payer MEDICARE, BC, SELFPAY ==
--- NOTE | 2024-12-05 15:00 | CRLHL7_ITS ---
For Patients: As a result of the Century Cures Act, medical imaging exams and procedure reports are released immediately into your electronic medical record. You may view this report before your referring provider. If you have questions, please contact your health care provider. INDICATION: Left lower extremity swelling. TECHNIQUE: Left lower extremity Doppler venous ultrasound examination was performed. Grayscale and color Doppler images were obtained. COMPARISON: Bilateral lower extremity Doppler venous ultrasound 01/04/2023. FINDINGS: RIGHT LOWER EXTREMITY: Common femoral vein: Fully compressible. No deep vein thrombus. Normal flow and response to augmentation on color Doppler imaging. LEFT LOWER EXTREMITY: Common femoral vein: Fully compressible. No deep vein thrombus. Normal flow and response to augmentation on color Doppler imaging. Superficial femoral vein: Fully compressible. No deep vein thrombus. Normal flow on color Doppler imaging. Deep femoral vein: No deep vein thrombus Popliteal vein: Fully compressible. No deep vein thrombus. Normal flow on color Doppler imaging. Lower calf: Limited visualization of the veins of the left lower calf, limiting their evaluation. There appears to be preservation of flow on color Doppler imaging. Superficial veins: The superficial veins, including the greater saphenous vein, remain patent and are fully compressible. Soft tissues: No popliteal fossa fluid collection identified. IMPRESSION: No deep vein thrombus within the left lower extremity. Dictated by Dhiraj Kulkarni MD @ 12/05/2024 3:36:46 PM (Electronically Signed)
== END 2024-12-05 14:35 | disposition home or self-care (01) ==
LOC: US 14:35
PROVIDERS: PCP Physician Assistant Medical; Visit Provider Physician Assistant Surgical
DX: R22.42 Localized swelling, mass and lump, left lower limb (principal); Z86.718 Personal history of other venous thrombosis and embolism
CPT/HCPCS: 93971

== ENCOUNTER 2025-07-06 14:45 | Outpatient (RCR) | payer MEDICARE, BC, SELFPAY ==
--- NOTE | 2024-11-21 17:12 | PT.OPEX ---
PT [facility] PT [facility] Outpatient Eval Start: 11/17/24 15:51 Freq: Status: Active Protocol: Document 11/21/24 11:42 HLA (Rec: 11/21/24 17:00 HLA [id number]) E-signed By Rocio Anaya, PT, DPT Physical Therapy Outpatient Evaluation Insurance Information Recert Due Date 02/18/25 Insurance Name [employer] Medical Diagnosis L knee OA, pain, stiffness L knee Treating Diagnosis weakness, difficulty amb Imaging Report Information end stage OA, limited joint space L knee Referring MD Diaz Subjective Preferred Name Gabbi Subjective Reports her knee has gotten quite stiff, can't bend it, pain at times but more stiffness and it limits her mobility. She is ready for her TKA, first joint. Pt is , lives alone but her adult dtr and granddaughter will be helping her after surgery. Multi level home, can stay on main floor after 3 step entry. Has walker and cane in her home. Uses a stationary bike, walks, but she is retired now. Date of Last Physician Visit 11/13/24 Date of Surgery (If applicable) 11/27/24 Current Work Status Retired Precautions Treatment Precautions/Contraindications Access Code: [email or web address] URL: [email or web address] Date: 11/21/2024 Prepared by: Rocio Anaya Exercises - Supine Single Leg Ankle Pumps - 3 x daily - 7 x weekly - 10 reps - edema management exercise type - Supine Quadricep Sets - 3 x daily - 7 x weekly - 10 reps - 5 seconds hold - strength exercise type - Supine Short Arc Quad - 3 x daily - 7 x weekly - 10 reps - 5 seconds hold - strength exercise type - Active Straight Leg Raise with Quad Set - 3 x daily - 7 x weekly - 10 reps - 2-3 second hold - strength exercise type - Supine Heel Slide - 3 x daily - 7 x weekly - 10 reps - range of motion exercise type - Supine Isometric Hamstring Set - 3 x daily - 7 x weekly - 10 reps - 5 sec hold - strength exercise type - Seated Knee Flexion Stretch - 3 x daily - 7 x weekly - 10 reps - 5 second hold - range of motion/stretch exercise type - Seated Long Arc Quad - 3 x daily - 7 x weekly - 10 reps - 5 second hold - range of motion/strength exercise type - Seated Passive Knee Extension - 3 x daily - 7 x weekly - 1 reps - 5-15 minutes hold - strength exercise type Patient Education - Safe Practices For Preventing Falls - Going Up and Down Stairs With Two Rails After Surgery - Walker WBAT - Ice Weight Bearing Status Weight Bear as Tolerated Therapy Limitations/Systems Review Not Limited Objective Range of Motion L hip 0-120 flex, abd 0-45, ER /IR 0-45 L knee 5-105 L ankle 0-15 DF, 0-50 PF R hip full R knee full R ankle full Strength L hip 5/5 L knee 4/5 L ankle 5/5 R hip 5/5 R knee 5/5 R ankle Swelling edema patellar area Palpation pain joint line medially Balance & Gait amb level surfaces no device, stiff L knee, decreased WB L LE, antalgic but stable. 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 She had hx of DVT after her meniscal repair. Pt at baseline is ind amb no device, drives. She has a considerable limp on her L knee, stiff, but stable amb. Pt does stairs step to pattern , leads up with R and down with L. Strength WNL except L knee 4/5. ROM 5-105 L knee. Pt was instructed in TKA ex program (quad sets, ham sets, ankle pumps, heel slides, SAQ, SLR, seated knee flex/ext and hamstring stretches) per protocol to be practiced pre- operatively and for improved learning post-operatively. Pt was instructed in hospital post-op progression in PT, safety, fall prevention. Pt was instructed in positioning in chair, use of ice/polar care, bed, transfer safety, gt safety with walker, stairs, car transfers and outpatient therapy progression. Primary Functional Limitations impaired amb, mobility, stiffness, impaired ROM, weakness Plan of Care Rehabilitation Potential Good Physical Therapy Goals 1. Within this session: Pt will verbalize understanding of pre-op/post-op safety, mobility and exercises with home program issued and pt returning for ongoing therapy after TKA replacement. Within 10-12 weeks post- surgery: 1. Pt will have knee AROM 0- 120 degrees for transfers, ADLs, and stairs independence. 2. Pt will amb 20 min with se cane or no device as indicated, safely and independently for community and household ambulation. 3. Pt will be independent in home ex program for long chain beamer pain management and to promote independence and to decrease fall risk. 4. Pt will ascend/descend 13 stairs with railing independently for community mobility. Treatment Plan/Direct Interventions Gait Training,Ice/Cold/ Vasopneumatic,Manual Therapy, Neuromuscular Re-ed,Self-Care/ Home Management,Therapeutic Activities,Therapeutic Exercises Patient Will Be Discharged From Therapy Completion of LTG(s),Skills Plateau,Independent w/HEP, Independently Progressing Evaluation Billing PT Eval No Charge No Complexity Low Certification Information Initial Certification Date 11/21/24 Ending Certification Date 02/18/25 Provider Signature Required Yes Provider Signature Shows Agreement With POC & Medical Necessity Physician NPI Number Write NPI# Here Physician Comment/Change : Physician Signature & Date Requested Please Sign/Date Here
--- NOTE | 2024-11-30 11:59 | PT.OPDNX ---
PT [facility] Daily Note PT [facility] Daily Note Start: 11/17/24 15:51 Freq: Status: Active Protocol: Document 11/30/24 07:27 HLA (Rec: 11/30/24 11:59 HLA [id number]) E-signed By Rocio Anaya, PT, DPT PT OP Daily Progress Note Visit Information Note Type Daily Note,Re-Evaluation Visit Number 2 Insurance Information Recert Due Date 02/18/25 Insurance Name Blue Cross/Blue Shield Medical Diagnosis L knee OA, pain, stiffness L knee Treating Diagnosis weakness, difficulty amb Imaging Report Information end stage OA, limited joint space L knee Referring MD Emily Subjective Preferred Name Gabbi Subjective Painful since surgery, leg is swollen and heavy. Sleeping in a chair, short bouts. Taking the oxycodone and tylenol, not taking a lot of oxy. She is ok'd by ortho to take ibuprofen. She is constipated. Date of Last Physician Visit 11/13/24 Date of Surgery (If applicable) 11/27/24 Precautions Weight Bearing Status Weight Bear as Tolerated Home Exercise Home Exercise Comments Access Code: [email or web address] URL: [email or web address] Date: 11/21/2024 Prepared by: Rocio Anaya Exercises - Supine Single Leg Ankle Pumps - 3 x daily - 7 x weekly - 10 reps - edema management exercise type - Supine Quadricep Sets - 3 x daily - 7 x weekly - 10 reps - 5 seconds hold - strength exercise type - Supine Short Arc Quad - 3 x daily - 7 x weekly - 10 reps - 5 seconds hold - strength exercise type - Active Straight Leg Raise with Quad Set - 3 x daily - 7 x weekly - 10 reps - 2-3 second hold - strength exercise type - Supine Heel Slide - 3 x daily - 7 x weekly - 10 reps - range of motion exercise type - Supine Isometric Hamstring Set - 3 x daily - 7 x weekly - 10 reps - 5 sec hold - strength exercise type - Seated Knee Flexion Stretch - 3 x daily - 7 x weekly - 10 reps - 5 second hold - range of motion/stretch exercise type - Seated Long Arc Quad - 3 x daily - 7 x weekly - 10 reps - 5 second hold - range of motion/strength exercise type - Seated Passive Knee Extension - 3 x daily - 7 x weekly - 1 reps - 5-15 minutes hold - strength exercise type Patient Education - Safe Practices For Preventing Falls - Going Up and Down Stairs With Two Rails After Surgery - Walker WBAT - Ice Objective Other/Pertinent Objective Circumferential measurements L LE mid patella 63 cm 7 cm above patella 60 cm 7 cm distal to patella 48 cm Functional Test Performed & Score LEFS 48/80 Patient Instructed in Risks/Benefits Yes Therapeutic Exercise Therapeutic Exercise Minutes (minutes) 45 Therapeutic Exercise: To Restore practiced TKA ex, pt needs Functional Status assist with ham sets, HS, SAQ, SLR and knee ext TKA ex: Access Code: [email or web address] URL: [email or web address] Date: 11/21/2024 Prepared by: Rocio Anaya Exercises - Supine Single Leg Ankle Pumps - 3 x daily - 7 x weekly - 10 reps - edema management exercise type - Supine Quadricep Sets - 3 x daily - 7 x weekly - 10 reps - 5 seconds hold - strength exercise type - Supine Short Arc Quad - 3 x daily - 7 x weekly - 10 reps - 5 seconds hold - strength exercise type - Active Straight Leg Raise with Quad Set - 3 x daily - 7 x weekly - 10 reps - 2-3 second hold - strength exercise type - Supine Heel Slide - 3 x daily - 7 x weekly - 10 reps - range of motion exercise type - Supine Isometric Hamstring Set - 3 x daily - 7 x weekly - 10 reps - 5 sec hold - strength exercise type - Seated Knee Flexion Stretch - 3 x daily - 7 x weekly - 10 reps - 5 second hold - range of motion/stretch exercise type - Seated Long Arc Quad - 3 x daily - 7 x weekly - 10 reps - 5 second hold - range of motion/strength exercise type - Seated Passive Knee Extension - 3 x daily - 7 x weekly - 1 reps - 5-15 minutes hold - strength exercise type Patient Education - Safe Practices For Preventing Falls - Going Up and Down Stairs With Two Rails After Surgery - Walker WBAT - Ice Pt was instructed in TKA ex program (quad sets, ham sets, ankle pumps, heel slides, SAQ, SLR, seated knee flex/ext and hamstring stretches) per protocol to be practiced pre- operatively and for improved learning post-operatively. Pt was instructed in hospital post-op progression in PT, safety, fall prevention. Pt was instructed in positioning in chair, use of ice/polar care, bed, transfer safety, gt safety with walker, stairs, car transfers and outpatient therapy progression. Therapeutic Activity Therapeutic Activities Comments sit<>stand ind sit<>supine uses UEs to lift L LE car transfer min assist of L LE Manual Therapy Techniques Manual Therapy Minutes (minutes) 8 Manual Therapy Techniques STM for edema reduction, pain control L LE goal to increase ROM HS and HC stretch manually , gentle knee flex/ext on L Gait & Stair Training Gait Training/Stairs Minutes (minutes) 5 Gait & Stair Training Comments Gt flexed at waist with walker , stiff L knee, instructed pt in heel toe patterning. 100 feet x 2. Pt instructed in gt progression for home Self Care Management Training Self Care Management Training showered, min assist of family . Treatment Minutes Untimed Code Treatment Minutes 10 Timed Code Treatment Minutes 58 Total Treatment Time 68 Billing Units Manual Therapy Units 1 Therapeutic Exercise Units 2 Re-Evaluation Units 1 Assessment/Impression Assessment/Impression Gabbi underwent L TKA on 08/11. Pt has significant L LE edema, measurements taken and tubigrip added. Instructed pt in elevating, ice, compression via NICE. Pt amb with walker, stiff gt, vc for heel toe patterning and instructed in lessening UE support on walker. Pt performed her TKA ex with assist for ham sets, HS, SAQ, LAQ, and SLR. STM for edema reduction L LE. Pt with weakness, impaired ROM, difficulty with transfers/gt. She will benefit from PT twice weekly for ROM, strengthening , gt and transfer training, manual techniques, balance activities, safety instruction and home ex program instruction. Pt's goal is to return to community distance amb and hobbies painfree, no AD. Primary Functional Limitations impaired amb, mobility, stiffness, impaired ROM, weakness Plan of Care Physical Therapy Goals *-Within 10-12 weeks post- surgery: 1. Pt will have knee AROM 0- 120 degrees for transfers, ADLs, and stairs independence. 2. Pt will amb 20 min with se cane or no device as indicated, safely and independently for community and household ambulation. 3. 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 4. Pt will ascend/descend 13 stairs with railing independently for community mobility. Daily Plan of Care Continue per POC Equipment Information Equipment Information has ww, cane and quad cane for home use
--- NOTE | 2025-02-20 07:26 | PT.OPDNX ---
PT [facility] Daily [facility] Daily [facility] Start: 11/17/24 15:51 Freq: Status: Active Protocol: Document 02/19/25 07:12 MLS (Rec: 02/19/25 15:28 MLS [id number]) E-signed By Yodit Fisher DPT PT OP Daily Progress Note Visit Information Note Type Daily Note Visit Number 23 Insurance Information Recert Due Date 02/18/25 Insurance Name [employer] Medical Diagnosis L knee OA, pain, stiffness L knee Treating Diagnosis weakness, difficulty amb Imaging Report Information end stage OA, limited joint space L knee Referring MD Diaz Subjective Preferred Name Gabbi Subjective She states that she saw Dr. Raman on Wednesday and is going back tomorrow for stretching. She states that he said she has about ten days to make the decision of a manipulation, but she only wants to do that as a last resort. She states that she is going up to [place] on Wednesday to try softwave therapy . She states that she took her dad to see NIKOLE (another PT) last week and he gave her knee exercises as well. She notes that he said she can go back and forth on the bike and is okay if she doesn't go around. She states that she iced it prior to coming in today after she finished mowing lawn. She used the pool on hot tub on Wednesday at [address]. She states that she is going to see Bruce for PT at some time as well. Pain Comments 01/25 Date of Last Physician Visit 11/13/24 Date of Surgery (If applicable) 11/27/24 Precautions Weight Bearing Status Weight Bear as Tolerated Home Exercise Home Exercise Comments Access Code: [email or web address] URL: [email or web address] Date: 01/25/2025 Prepared by: Rocio Anaya Exercises - Quad set with heel propped - 1 x daily - 7 x weekly - 3 sets - 10 reps - Supine Heel Slide with Strap - 1 x daily - 7 x weekly - 3 sets - 10 reps - Seated Knee Flexion Stretch - 3 x daily - 7 x weekly - 10 reps - 5 second hold - range of motion/stretch exercise type - Seated Passive Knee Extension - 3 x daily - 7 x weekly - 1 reps - 5-15 minutes hold - strength exercise type - Prone Lying with Towel Roll (Hip Flexor Stretch) (BKA) - 1 x daily - 7 x weekly - 1 sets - 1 reps - 2 min hold - Standing March with Counter Support - 1 x daily - 7 x weekly - 1-2 sets - 10 reps - Squat with Counter Support - 1 x daily - 7 x weekly - 1-2 sets - 10 reps - Heel Toe Raises with Counter Support - 1 x daily - 7 x weekly - 3 sets - 10 reps - Single Leg Stance with Support in Pool - 1 x daily - 2-3 x weekly - 1 sets - 3 reps - 20 hold - Tandem Walking in Pool - 1 x daily - 2-3 x weekly - 3 sets - 10 reps - Standing Knee Flexion Stretch on Step - 1 x daily - 7 x weekly - 1 sets - 5 reps - 10 hold Objective Other/Pertinent Objective L knee 11-91 at start of session, 5-111 by end of session with therapist overpressure. Self stretch seated end of session 10-105 sliding into flex. Worked with pt on ways to increase flex/ ext at home; reviewed stretches. Patient Instructed in Risks/Benefits Yes Therapeutic Exercise Therapeutic Exercise Minutes (minutes) 45 Therapeutic Exercise: To Restore Bike 6 min level 4 forward and Functional Status backward revolutions at wall L foot turned in, gastroc stretch with heel down , hip extended arms up working on end range knee ext 20 sec x 6 reps standing hamstring stretch 30 sec x 2 standing quad stretch, L foot on stool 20 sec x 6 reps supine HS/contract relax x 10 standing knee stretch on stool x 20 sec 5 reps contract relax seated knee flex 10 reps, 2 sets therapist overpressure supine knee flex/extension stool 2 sets of 3 reps, 20 sec hold Nustep seat level 7, 6 min leg press single left leg 45# x 10, 60# x 10 Gait & Stair Training Gait & Stair Training Comments vc to relax arms, hip ext, feet together with gt. Neuromuscular Re-Ed Neuromuscular Reeducation Comments high knee walking 30 feet x 2 amb feet together 30 feet x 2 Treatment Minutes Timed Code Treatment Minutes 45 Total Treatment Time 45 Billing Units Therapeutic Exercise Units 3 Assessment/Impression Assessment/Impression Patient is s/p L TKA on . Complaints of knee stiffness and tightness upon arrival today. L knee 11-95 at start of session, 5-108 by end of session with therapist overpressure. Continued with cues to relax, breathe and reduce co-contraction. Added single leg press at 45-60# with good tolerance. Continued to educate on the importance of pushing through pain and getting around on her bike. Instructed to continue to move her seat forward on her bike at home. Educated on pain going forward with or without the manipulation and the importance of pushing through to her max tolerance. She has an other appointment with Dr. Raman tomorrow, primary PT Wednesday and soft wave therapy on Wednesday. She remains weak, swollen L LE/knee, sensitive to touch with impaired ROM, balance, strength and gt. PT 2x/ per week recommended to regain full AROM, return to community distance amb and leisure activities no device, painfree . Primary Functional Limitations impaired amb, mobility, stiffness, impaired ROM, weakness Plan of Care Physical Therapy Goals *-Within 10-12 weeks post- surgery: 1. Pt will have knee AROM 0- 120 degrees for transfers, ADLs, and stairs independence. 2. Pt will amb 20 min with se cane or no device as indicated, safely and independently for community and household ambulation. 3. Pt will be independent in home ex program for [facility] pain management and to promote independence and to decrease fall risk. 4. Pt will ascend/descend 13 stairs with railing independently for community mobility. Daily Plan of Care Continue per POC
== END 2025-08-31 14:46 | disposition home or self-care (01) ==
PROVIDERS: PCP Physician Assistant Medical; Visit Provider Orthopaedic Surgery Sports Medicine
DX: Z47.1 Aftercare following joint replacement surgery (principal); M17.12 Unilateral primary osteoarthritis, left knee; M25.562 Pain in left knee; M25.662 Stiffness of left knee, not elsewhere classified; Z96.652 Presence of left artificial knee joint; Z51.89 Encounter for other specified aftercare
CPT/HCPCS: 97110; 97112; 97116; 97140; 97161; 97164; 97530

== ENCOUNTER 2025-07-23 14:59 | Day surgery (SDC) | payer MEDICARE, BC, SELFPAY ==
[2025-07-23] VITALS (16 sets, daily range): BP systolic 110–125; BP diastolic 48–84; PULSE 58–79; RESP 16–18; TEMP 35.6–37.7; O2SAT 88–100; BMI 37.7
--- OUTSIDE RECORDS SUMMARY | 2025-07-23 15:06 | XMS_ITS | Clinical Summary ---
Author Organization [facility] Address [address] [place] [address] Care Team Providers Care Bread Packer Name Role Phone Aleshia Henderson Primary Care [...] BiPAP no 1 Device 03/03/20 21 Active nystatin powder (MYCOSTATIN) powderIndications: Yeast infection APPLY 1 STRIP TOPICALLY TO AFFECTED AREA(S) THREE TIMES DAILY. 60 g 1 08/21/20 24 Active amLODIPine 2.5 mg tabletIndications: HTN (hypertension) Take 1 Tablet (2.5 mg) by mouth once daily. 90 Tablet 3 04/02/20 25 Active propranoloL 20 mg tabletIndications: Essential tremor TAKE 1 TAB ONCE DAILY 1/2 TO 1 HOUR PRIOR TO ACTIVITY/PAPER WORK. CAN TAKE DAILY TO HELP WITH SHAKING 60 Tablet 1 04/02/20 25 Active torsemide 10 mg tabletIndications: Ankle edema, bilateral Take 1 Tablet (10 mg) by mouth once daily. 90 Tablet 3 04/02/20 25 Active rosuvastatin 10 mg tabletIndications: Hyperlipidemia, unspecified hyperlipidemia type Take 1 Tablet (10 mg) by mouth at bedtime. 90 Tablet 3 04/03/20 25 Active topiramate 25 mg tabletIndications: Class 2 severe obesity with body mass index (BMI) of 35 to 39.9 with serious comorbidity TAKE 1 TABLET BY MOUTH TWO TIMES DAILY. 180 Tablet 05/02/20 25 025 Discontin ued(*Izabela ent states no longer taking) Hospital, Clinic, or Other Facility Administered Medication Ordered Dose Route Frequency Start Date End Date Status betamethasone acet,sod phos 9 mg injection (CELESTONE SOLUSPAN)Indications:Prima ry osteoarthritis of right knee 9 mg IArtic ONE TIME 06/27/2025 06/27/2025 Ended Active Problems Problem Noted Date Diagnosed Date S/p Left total knee arthropl asty DOS: 11/27/[address] Paco Diaz at [place] 04/04/2025 Class 2 severe obesity with body mass [...] unspecified chronicity 02/21/2024 Skin cancer 07/23/2022 Overview (02/16/2025): 10/27/24 left chest, superficial/nodular BCC, excised by Isabel Fisher MD on 02/08/2025 07/21/22: Left ear, basal cell carcinoma nodular type. 09/07/[address] Mancini Pap smear for cervical cancer screening 10/18/19 Overview (11/26/2021): 10/2021 NIL/HPV negative. Plan: routine screening Excessive or frequent menstruation 05/11/2007 Encounters Date Type Department Care Team Description 07/23/2025 Nurse Triage [facility] [address] [facility] [place] [address] Aleshia Henderson PA Abdominal Pain (Pelvic pain. Has appendix in. No sx of UTI) 06/27/2025 4:00 PM CDT Office Visit [facility] [address] [place] [address] Fernando May MD Knee Pain/problem (right knee injury from April) 06/27/2025 9:45 AM CDT Ancillary Procedure [facility] [address] [address] 06/27/2025 Travel 06/25/2025 11:50 AM CDT Office Visit [facility] [address] [place] [address] Aleshia Henderson PA Knee Pain/problem (R knee pain - started to be more active with walking and knee is more painful and swollen. ) 06/24/2025 Travel 05/10/2025 3:15 PM CDT Ancillary Procedure [address] [place] [address] 05/10/2025 3:00 PM CDT Ancillary Procedure [facility] [address] [place] [address] 05/10/2025 1:45 PM CDT Ancillary Procedure [address] [address] 05/10/2025 1:15 PM CDT Office Visit [facility] [address] [place] [address] Karlene Villarreal PA Foot Injury 05/10/2025 Travel 05/04/2025 Refill [facility] [address] [place] [address] Aleshia Henderson PA Refill Request (Topiramate) 04/30/2025 Refill [facility] [address] [place] [address] Aleshia Henderson PA Refill Request (Topiramate) from Last 3 Months Immunizations Immunization Administration Dates Next Due COVID-19 vaccine (better.-Bio NTech 30mcg/0.3mL) 12YO+ RACHEL-SUCROSE PF, MDV 10/30/2021 [...] Answer Date Recorded PHQ-2 TOTAL SCORE 0 04/02/2025 Social Connections Answer Date Recorded Do you often feel lonely or isolated from those around you? 0 04/02/2025 Financial Resource Strain Answer Date R ecorded Difficulty of Paying Living Expenses 3 04/02/2025 Difficulty of Paying Living Expenses Not on file 04/02/2025 Food Insecurity Answer Date Recorded Do you worry your food will run out before you are able to buy more? 1 04/02/2025 Transportation Needs Answer Date Record ed Does lack of transportation keep you from medica l appointments? 1 04/02/2025 Does lack of transportation keep you from work, meetings or getting things that you need? 1 04/02/2025 Housing Stability Answer Date Recorded What is your housing situation today? 1 04/02/2025 Utilities Answer Date Recorded Do you have trouble paying f or utilities (for example, heat, electricity, water, phone)? 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 Gender Identity Not on file Sexual Orientation Not on file Obstetrics History Last Filed Vital Signs Vital Sign Reading Time Taken Comments Blood Pressure 127/80 06/27/2025 4:06 PM CDT Pulse 75 06/27/2025 4:06 PM CDT Temperature 36.7 C (98 F) 06/27/2025 4:06 PM CDT Respiratory Rate - - Oxygen Saturation 97% 06/27/2025 4:06 PM CDT Inhaled Oxygen Concentration - - Weight 93.4 kg (206 lb) 06/27/2025 4:06 PM CDT Height 158.2 cm (5' 2.28) 04/02/2025 9:45 AM CD T Body Mass Index 37.34 04/02/2025 9:45 AM CDT Plan of Treatment Health Maintenance Due Date Last Done Comments Pneumococcal series for age 50+ (1 of 1 - PCV) 2008 Zoster (shingles) series for age 50+ (1 of 2) 2008 RSV vaccine for adults or (1 - Risk 60-74 years 1-dose series) 2018 Tetanus booster 10/24/2020 10/24/2010, 09/19/1998 COVID-19 vaccine series ( season) 2025 10/30/2021, 02/01/2021, 01/11/2021 Influenza Vaccine (#1) 2025 Mammogram for age 45-75 09/20/2025 09/20/20, 10/08/2023, 10/05/2022, Additional history exists BMI (ht and wt on same day) for age 18+ 04/02/2026 04/02/2025, 02/21/2024, 05/10/2023, Additional history exists Depression screening for age 12+ 04/02/2026 04/02/2025, 02/22/2024, 02/22/2024, Additional history exists Medicare Wellness for age 65+ 04/03/2026 04/02/2025, 02/21/2024 Lipids for age 45-75 04/02/2030 04/02/2025, 02/21/2024, 09/11/2022, Additional history exists Colonoscopy through age 75 05/17/203305/17, 05/17/2023, 05/17/2023 Hepatitis C screening for age 18-79 Completed 12/08/2016 DEXA/DXA scan for age 65+ Completed 02/22/2024 Hepatitis B series for 19+ Aged Out N o longer eligible based on patient's age to complete this topic Procedures Procedure Name Priority Date/Time Associated Diagnosis Comments MR KNEE RIGHT WO [facility] 06/27/2025 10:2 7 AM CDT Acute pain of right knee Pain and swelling of right knee XR KNEE 3 VIEWS LEFT [facility] 05/10/2025 2:46 PM CDT Acute pain of left knee US VENOUS LOWER EXTREMITY LEFT [facility] 05/10/2025 2:15 PM CDT Left leg swelling History of DVT in adulthood XR FOOT 3 VIEWS LEFT [facility] 05/10/2025 1:42 PM CDT Foot pain, left LIPID PANEL W REFLEX MEASURED LDL Routine 04/02/2025 10:52 AM CDT HTN (hypertension) XR MAMMO MANJEET BILAT SCREEN Routine 09/20/2024 10:06 AM GENERATOR SWITCHBOARD OPERATOR Visit for screening mammogram XR DXA BONE DENSITY 2 SITES AXIAL Routine 02/22/2024 9:21 AM CDT Post menopausal syndrome Unspecified menopausal and perimenopausal disorder COLONOSCOPY SCREENING Routine 05/17/2023 12:00 AM CDT Screening for colon cancer ANTI HCV Routine 12/08/2016 8:43 AM GENERATOR SWITCHBOARD OPERATOR Need for hepatitis C screening test from Last 3 Months or Most Recently Relevant to Health Maintenance Results * MR KNEE RIGHT WO (06/27/2025 10:27 AM CDT) Anatomical Region Laterality Modality KNEE R Magnetic Resonan ce 06/27/2025 10:4 8 AM CDT Impressions 06/27/2025 10:48 AM CDT 1. Degenerative arthrosis of the right knee with full-thickness grade 4 cartilage loss within the medial compartment. Prominent bone marrow edema underlying the medial aspect of the medial tibial plateau. 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 2. Medial meniscal tear. Moderate medial extrusion of the medial meniscal body. 3. Small joint effusion. 4. No acute fracture. 5. Mild chronic thickening of the proximal MCL. 6. Patella john. Dictated by Manoj Villarreal MD @ 06/27/2025 10:48:43 AM (Electronically Signed) Narrative 06/27/2025 10:48 AM CDT For Patients: As a result of the Century Cures Act, medical imaging exams and procedure reports are released immediately into your electronic medical record. You may view this report before your referring provider. If you have questions, please contact your health care provider. CLINICAL INDICATION: Acute right knee pain. Swelling. COMPARISON STUDIES: Radiographs from 04/04/2025. TECHNICAL: Noncontrast MRI of the right knee. 1.5 alison MRI scanner. Axial, sagittal and coronal T1, PD, PD FS and T2 FS images. FINDINGS: MEDIAL COMPARTMENT: Medial Meniscus: Horizontal meniscal tearing is noted within the posterior horn and anterior body of the medial meniscus as seen on sagittal T2 fat-sat image number 9 of series 12 and coronal PD fat-sat image number 15 of series 11. The medial meniscal body is moderately medially extruded. Articular Cartilage: Marginal osteophyte formation. There is full-thickness cartilage loss involving the medial tibial plateau with subchondral bone marrow edema (grade 4). High-grade medial femoral condyle articular cartilage wear (grade 3/4). LATERAL COMPARTMENT: Lateral Meniscus: Intact. Articular Cartilage: Minor marginal osteophyte formation. No focal articular cartilage defect. PATELLOFEMORAL COMPARTMENT: Articular Cartilage: Marginal osteophyte formation. High-grade chondromalacia (grade 3). LIGAMENTS: Anterior Cruciate Ligament: Intact. Posterior Cruciate Ligament: Intact. MEDIAL COLLATERAL LIGAMENT AND POSTEROMEDIAL CORNER COMPLEX: Medial Collateral Ligament: Mild chronic thickening of the proximal MCL. Medial Head of the Gastrocnemius and Semimembranosus Tendons: Normal. LATERAL COLLATERAL LIGAMENT COMPLEX AND POSTEROLATERAL CORNER COMPLEX: Fibular Collateral Ligament: Normal. Distal Biceps Femoris Tendon Complex: Normal. Iliotibial Band: Normal. Popliteus Tendon: Normal. Posterolateral Corner Capsule: Normal. EXTENSOR MECHANISM: Distal Quadriceps Tendon: Intact. Patellar Tendon: Intact. Medial Patellar Retinaculum and Medial Patellofemoral Ligament: Intact. Lateral Patellar Retinaculum: Intact. Normal patellar alignment. There is patella john. Normal trochlear depth. Normal lateral trochlear inclination. JOINT SPACE AND CAPSULE: Small joint effusion. BONES AND SOFT TISSUES: No acute fracture or avascular necrosis.No significant popliteal cyst.Anterior subcutaneous edema. Procedure Note Manoj Villarreal MD - 06/27/2025 For Patients: As a result of the Cures Act, medical imagingexams and procedure reports are released immediately into your electronicmedical record. You may view this report before your referring provider.If you have questions, please contact your health care provider. CLINICAL INDICATION: Acute right knee pain. Swelling. COMPARISON STUDIES: Radiographs from 04/04/2025. TECHNICAL: Noncontrast MRI of the right knee. 1.5 alison MRI scanner. Axial, sagittaland coronal T1, PD, PD FS and T2 FS images. FINDINGS: MEDIAL COMPARTMENT: Medial Meniscus: Horizontal meniscal tearing is noted within the posteriorhorn and anterior body of the medial meniscus as seen on sagittal [id number] image number 9 of series 12 and coronal PD fat-sat image number 15of series 11. The medial meniscal body is moderately medially extruded. Articular Cartilage: Marginal osteophyte formation. There isfull-thickness cartilage loss involving the medial tibial plateau withsubchondral bone marrow edema (grade 4). High-grade medial femoral condylearticular cartilage wear (grade 3/4). LATERAL COMPARTMENT: Lateral Meniscus: Intact. Articular Cartilage: Minor marginal osteophyte formation. No focalarticular cartilage defect. PATELLOFEMORAL COMPARTMENT: Articular Cartilage: Marginal osteophyte formation. High-gradechondromalacia (grade 3). LIGAMENTS: Anterior Cruciate Ligament: Intact. Posterior Cruciate Ligament: Intact. MEDIAL COLLATERAL LIGAMENT AND POSTEROMEDIAL CORNER COMPLEX: Medial Collateral Ligament: Mild chronic thickening of the proximal MCL. Medial Head of the Gastrocnemius and Semimembranosus Tendons: Normal. LATERAL COLLATERAL LIGAMENT COMPLEX AND POSTEROLATERAL CORNER COMPLEX: Fibular Collateral Ligament: Normal. Distal Biceps Femoris Tendon Complex: Normal. Iliotibial Band: Normal. Popliteus Tendon: Normal. Posterolateral Corner Capsule: Normal. EXTENSOR MECHANISM: Distal Quadriceps Tendon: Intact. Patellar Tendon: Intact. Medial Patellar Retinaculum and Medial Patellofemoral Ligament: Intact. Lateral Patellar Retinaculum: Intact. Normal patellar alignment. There is patella john. Normal trochlear depth.Normal lateral trochlear inclination. JOINT SPACE AND CAPSULE: Small joint effusion. BONES AND SOFT TISSUES: No acute fracture or avascular necrosis.No significant poplitealcyst.Anterior subcutaneous edema. IMPRESSION: 1. Degenerative arthrosis of the right knee with full-thickness grade 4cartilage loss within the medial compartment. Prominent bone marrow edemaunderlying the medial aspect of the medial tibial plateau. High-gradepatellofemoral compartment chondromalacia (grade 3). 2. Medial meniscal tear. Moderate medial extrusion of the medial meniscalbody. 3. Small joint effusion. 4. No acute fracture. 5. Mild chronic thickening of the proximal MCL. 6. Patella john. Dictated by Manoj Villarreal MD @ 06/27/2025 10:48:43 AM (Electronically Signed) us Aleshia GARCIA MR Final R esult * XR KNEE 3 VIEWS LEFT (05/10/2025 2:46 PM CDT) Anatomical Region Laterality Modality KNEES, KNEE L Computed Radiogr aphy 05/10/2025 7:32 PM CDT Narrative 05/10/2025 7:32 PM CDT For Patients: As a result of the Cures Act, medical imaging exams and procedure reports are released immediately into your electronic medical record. You may view this report before your referring provider. If you have questions, please contact your health care provider. Indication: Left knee pain. Technique: Three radiographic views of the left knee. Comparison: Knee radiographs 04/04/2025. Findings: Postop changes of left total knee arthroplasty without evidence of hardware loosening, periprosthetic fracture or other complication. Dictated by Lorenzo Mckenzie MD @ 05/10/2025 7:32:24 PM (Electronically Signed) Procedure Note Lorenzo Mckenzie MD - 05/10/2025 For Patients: As a result of the Cures Act, medical imagingexams and procedure reports are released immediately into your electronicmedical record. You may view this report before your referring provider.If you have questions, please contact your health care provider. Indication: Left knee pain. Technique: Three radiographic views of the left knee. Comparison: Knee radiographs 04/04/2025. Findings: Postop changes of left total knee arthroplasty without evidence ofhardware loosening, periprosthetic fracture or other complication. Dictated by Lorenzo Mckenzie MD @ 05/10/2025 7:32:24 PM (Electronically Signed) Karlene GARCIA GENERAL IMAGING Final Result * US VENOUS LOWER EXTREMITY LEFT (05/10/2025 2:15 PM CDT) Anatomical Region Laterality Modality LEGS, LEG L, Abdomen Ultrasound 05/10/2025 3:01 PM CDT Impressions 05/10/2025 3:01 PM CDT Normal left lower extremity venous ultrasound, no sign of deep venous thrombosis. Dictated by Tima Peng MD @ 05/10/2025 3:01:28 PM (Electronically Signed) Narrative 05/10/2025 3:01 PM CDT For Patients: As a result of the Cures Act, medical imaging exams and procedure reports are released immediately into your electronic medical record. You may view this report before your referring provider. If you have questions, please contact your health care provider. INDICATION: Left leg swelling and history of DVT TECHNIQUE: Ultrasound venous duplex lower left extremity. Compression venous exam was performed using magaña-scale, color Doppler, and spectral Doppler analysis. COMPARISON: 04/28/2023 FINDINGS: Sonographic imaging demonstrates the left common femoral, deep femoral, superficial femoral, popliteal, posterior tibial and greater saphenous and the contralateral right common femoral veins to be fully compressible with normal color Doppler blood flow. Procedure Note Tima Peng MD - 05/10/2025 For Patients: As a result of the Cures Act, medical imagingexams and procedure reports are released immediately into your electronicmedical record. You may view this report before your referring provider.If you have questions, please contact your health care provider. INDICATION: Left leg swelling and history of DVT TECHNIQUE: Ultrasound venous duplex lower left extremity. Compression venous examwas performed using magaña-scale, color Doppler, and spectral Doppleranalysis. COMPARISON: 04/28/2023 FINDINGS: Sonographic imaging demonstrates the left common femoral, deep femoral,superficial femoral, popliteal, posterior tibial and greater saphenous andthe contralateral right common femoral veins to be fully compressible withnormal color Doppler blood flow. IMPRESSION: Normal left lower extremity venous ultrasound, no sign of deep venousthrombosis. Dictated by Tima Peng MD @ 05/10/2025 3:01:28 PM (Electronically Signed) Karlene GARCIA US Final Result * XR FOOT 3 VIEWS LEFT (05/10/2025 1:42 PM CDT) Anatomical Region Laterality Modality FEET, FOOT L Computed Radiogr aphy 05/10/2025 7:25 PM CDT Narrative 05/10/2025 7:25 PM CDT For Patients: As a result of the Cures Act, medical imaging exams and procedure reports are released immediately into your electronic medical record. You may view this report before your referring provider. If you have questions, please contact your health care provider. Indication: Foot pain. Technique: Three views of the left foot. Comparison: None. Findings: No acute fractures. No traumatic subluxations. No significant soft tissue swelling. Bones are demineralized. Degenerative changes interphalangeal joints. Pes cavus. Impression: 1. No acute osseous abnormalities. Dictated by Lorenzo Mckenzie MD @ 05/10/2025 7:25:31 PM (Electronically Signed) Procedure Note Lorenzo Mckenzie MD - 05/10/2025 For Patients: As a result of the Cures Act, medical imagingexams and procedure reports are released immediately into your electronicmedical record. You may view this report before your referring provider.If you have questions, please contact your health care provider. Indication: Foot pain. Technique: Three views of the left foot. Comparison: None. Findings: No acute fractures. No traumatic subluxations. No significant soft tissueswelling. Bones are demineralized. Degenerative changes interphalangealjoints. Pes cavus. Impression: 1. No acute osseous abnormalities. Dictated by Lorenzo Mckenzie MD @ 05/10/2025 7:25:31 PM (Electronically Signed) Karlene GARCIA GENERAL IMAGING Final Result * (ABNORMAL) LIPID PANEL W REFLEX MEASURED LDL (04/02/2025 10:52 AM CDT) CHOLESTEROL, TOTAL 223(H) <200 mg/dL [facility] HDL CHOLESTEROL 38(L) > OR = 50 mg/dL [facility] TRIGLYCERIDES 110 <150 mg/dL [facility] LDL-CHOLESTEROL 162(H) mg/dL (calc) [facility] Comment: Reference range: <100 Desirable range <100 mg/dL for primary prevention; <70 mg/dL for patients with CHD or diabetic patients with > or = 2 CHD risk factors. LDL-C is now calculated using the Kristopher calculation, which is a validated novel method providing better accuracy than the Friedewald equation in the estimation of LDL-C. Dar SS et al. BENNETT. 2013;310(19): 0752-7556 (http://education.[employer].Scholastica/faq/CTZ519) CHOL/HDLC RATIO 5.9(H) <5.0 (calc) [facility] NON HDL CHOLESTEROL 185(H) <130 mg/dL (calc) [facility] Comment: For patients with diabetes plus 1 major ASCVD risk factor, treating to a non-HDL-C goal of <100 mg/dL (LDL-C of <70 mg/dL) is considered a therapeutic option. Blood BLOOD SPECIMEN / Unknown 04/02/2025 10:52 AM CDT 04/02/2025 10:54 AM CDT Narrative [facility] - 04/03/2025 7:51 AM CDT FASTING:YES FASTING: YES Aleshia GARCIA CHEMISTRY Final R esult [employer] [id number] [place] [address], [email or web address] [address] [place] [address] * XR MAMMO MANJEET BILAT SCREEN (09/20/2024 10:06 AM GENERATOR SWITCHBOARD OPERATOR) Anatomical Region Laterality Modality BREASTS, Breast Left, Breast Right Bilateral Mammography Impressions 09/20/2024 4:35 PM GENERATOR SWITCHBOARD OPERATOR There is no radiographic evidence for malignancy. Recommend annual mammograms. MAMMOGRAM ASSESSMENT: ACR 1 Negative PATIENTS: You will also receive a letter with your examination results in an easy to read format. If you have questions about your results, please contact your referring provider. Narrative 09/20/2024 4:35 PM GENERATOR SWITCHBOARD OPERATOR For Patients: As a result of the Century Cures Act, medical imaging exams and procedure reports are released immediately into your electronic medical record. You may view this report before your referring provider. If you have questions, please contact your health care provider. XR MAMMO MANJEET BILAT SCREEN [[id number]] CLINICAL HISTORY: This is an asymptomatic 64 y.o. patient. INDICATION FOR EXAM: Mammogram Screening. TECHNIQUE: CC & MLO views were obtained. This study was evaluated with the assistance of Computer-Aided Detection. Breast Tomosynthesis was used in interpretation. COMPARISON FILM: Yes 10/08/23 [facility] 10/05/22 [employer] FINDINGS: There are scattered areas of fibroglandular density. There are no dominant masses, suspicious micro calcifications or areas of architectural distortion. Aleshia GARCIA MAMMO Final R esult * (ABNORMAL) XR DXA BONE DENSITY 2 [...] recommended in 3-5 years. Aleshia Henderson PA-C [facility] 02/27/2024 Narrative 02/27/2024 2:35 PM CDT For Patients: Results are automatically released to your [facility] ([facility]) account once available, in compliance with federal regulations. This means that you may see your results before your provider has had a chance to review them. Please allow 2-3 business days for your provider to comment on the results. XR DXA Bone Mineral Density (BMD) EXAM LOCATION: [facility] [address] [facility] [address] PATIENT NAME: Gabbi De Los Santos DATE [...] two scanners are made by the same displayer merchandise. PROCEDURE: Dual-energy x-ray absorptiometry performed with routine [...] 8.5%. 10-year probability of hip fracture: 1.0%. us Aleshia GARCIA DEXA Final R esult * COLONOSCOPY SCREENING (05/17/2023 12:00 AM CDT) us Aleshia GARCIA GI PROCEDURE ORD Final Result * ANTI HCV [[id number]] (12/08/2016 8:43 AM GENERATOR SWITCHBOARD OPERATOR) HEPATITIS C ANTIBODY Non-Reacti ve Non-Reacti ve 12/08/2016 1:43 PM GENERATOR SWITCHBOARD OPERATOR [facility] Blood BLOOD SPECIMEN / Unknown Venipuncture / Unknown 12/08/2016 8:43 AM GENERATOR SWITCHBOARD OPERATOR 12/08/2016 8:43 AM GENERATOR SWITCHBOARD OPERATOR Narrative [facility] - 12/08/2016 1:43 PM GENERATOR SWITCHBOARD OPERATOR Antibodies to HCV not detected; does not exclude the possibility of exposure to HCV. Aleshia GARCIA SEND OUTS Final R esult [facility] [address] [place] [address], [place] from Last 3 Months or Most Recently Relevant to Health Maintenance Insurance BLUE CROSS [employer]ON BLUE MR PB ONLY [facility] Care Teams Bread Packer Relationship Specialty Start Date End Date Aleshia Henderson PA [address] [facility] [place] [address] PCP - General Family Practice 11/30/16
--- NOTE | 2025-07-23 15:11 | ED.ABDPAIN ---
HPI - Abdominal Pain General Date Seen: 07/23/25 Chief Complaint: Abdominal Pain Stated Complaint: pain in stomach Time Seen by Provider: 07/23/25 15:11 Source: patient, RN notes reviewed and old records reviewed Mode of arrival: ambulatory Limitations: no limitations History of Present Illness HPI narrative: Gabbi is a very pleasant 64-year-old female with history of left total knee replacement, postoperative DVT not currently on a blood thinner, hypertension who comes to the emergency room for evaluation regarding abdominal pain. Patient notes that she was woken at 0430 by pain in the low abdomen. She notes similar occurrence with pain over a week ago that resolved spontaneously. She has never had any abdominal surgeries. She has not had fever chills. At this moment she is somewhat nauseated but up until now she has not had any vomiting. She is rating the pain severe at this time. No dysuria hematuria, blood in stool. She has had 2 episodes of loose stools. She has increased pain with movement. No dysuria or hematuria. Last ate at 0930 hours with a small amount of coffee and 3 bites of yogurt. Related Data Home Medications ?Medication ?Instructions ?Recorded ?Confirmed torsemide 10 mg tablet 10 mg PO DAILY 05/08/22 07/23/25 amlodipine 2.5 mg tablet 2.5 mg PO DAILY 09/26/24 07/23/25 propranolol 20 mg tablet 20 mg PO DAILY 11/21/24 07/23/25 nystatin 100,000 unit/gram topical 1 applic topical 3XD 11/23/24 07/23/25 powder (Klayesta) rosuvastatin 10 mg tablet 10 mg PO QPM 07/23/25 07/23/25 Allergies Allergy/AdvReac Type Severity Reaction Status Date / Time nickel Allergy Unknown Verified 07/23/25 15:08 Review of Systems Status of ROS Reports: 10 or more systems reviewed and unremarkable except as noted in History and below Const Denies: fever, chills or fatigue Eyes Denies: change in vision ENMT Denies: neck pain or nasal congestion Cardio Denies: chest pain, lightheadedness or shortness of breath with exertion Resp Denies: shortness of breath GI Reports: abdominal pain, nausea and diarrhea; Denies: vomiting, constipation or blood in stool Denies: painful urination or urinary frequency Musculo Denies: neck pain Integ/Breast Denies: rash or itching Neuro Denies: headache Endo Denies: fatigue PFSH PFS Medical History Deep vein thrombosis (DVT) of proximal vein of left lower extremity ?I82.4Y2 - Acute embolism and thrombosis of unspecified deep veins of left proximal lower extremity (ICD-10) Hypertension ?I10 - Essential (primary) hypertension (ICD-10) Surgical History History of total left knee replacement (11/27/24) ?Z96.652 - Presence of left artificial knee joint (ICD-10) Status post medial meniscectomy of knee (10/28/22) ?Z98.890 - Other specified postprocedural states (ICD-10) H/O left wrist surgery ?Z98.890 - Other specified postprocedural states (ICD-10) Family History Sister Colorectal cancer Paternal Grandfather Diabetes Paternal Grandmother Ovarian cancer Son Cancer Mother Diabetes High blood pressure Father High blood pressure Social History Narrative: Patient is retired Smoking Status: Never smoker Do you use any of these nicotine containing products: None Second hand tobacco smoke exposure: No How often do you have a drink containing alcohol: never How often do you have six or more drinks on one occasion: Never AUDIT-C Alcohol total score: 0 Non-prescribed substance use: denies use Caffeine: Yes (daily coffee) Are you using contraception or practicing any form of control: No Exam Narrative: Exam Narrative: Alert and oriented. In discomfort. Guarding of movement. External ears eyes nose clear. Oral cavity with moist mucous membranes. Speech and mentation normal. Somewhat pale. Heart with a regular rate and rhythm and lungs are clear. Abdomen shows discomfort in the epigastrium and right lower quadrant. Positive for rebound tenderness. Negative for straight leg raise internal external rotation of the hip. Abdomen appears to be somewhat distended. Bowel sounds are decreased. I do not palpate any mass. Const: Vital Signs, click to edit/add: Vital Signs - 24 hr 07/23/25 15:02 07/23/25 16:54 Temperature 99.8 F H 97.6 F Pulse Rate [Pulse Oximeter] 79 64 Respiratory Rate 16 18 Blood Pressure [Ri ght Upper Arm] 125/84 124/74 Pulse Oximetry 96 93 Oxygen Delivery Me thod Room Air Room Air Documenting provider has reviewed patient's vital signs: yes Course Course ED Course: Differential diagnosis includes but is not limited to colitis, diverticulitis, ovarian torsion, appendicitis, enteritis, kidney stone, urinary tract infection. At this time will place IV and for pain use Toradol 15 mg IV, morphine 4 mg IV and Zofran 4 mg IV. Will give 1 L of saline. Will do labs to include CBC, comprehensive, CRP, lipase, urinalysis. Plan an abdominal and pelvic CT with IV contrast. Reevaluation(s) Reevaluation #1: Patient notes improvement of her pain after Toradol morphine and Zofran. White count is mildly elevated at 13.56. Creatinine 0.7. His LFTs within normal limits. CRP mildly elevated at 1.9. Lipase is normal. Reevaluation #2: CT shows an acute early uncomplicated appendicitis. Will speak to surgeon. Patient noted to have no recent illnesses cough cold congestion, cardiac history. Denies history of anesthesia problems in herself or her family. History of post knee replacement DVT. He is not currently on any blood thinner. EKG had and chest x-ray have been ordered. Consultations Consultation #1: At the pleasure of speaking with Dr. Gay, [facility] consultant. She was able to view this patient CT and is planning on appendectomy this evening. Patient will be kept NPO. Pain continues to be to controlled. Did discuss abnormal EKG with Dr. Fitzgerald. Vital Signs Vital signs: Initial Vital Signs Temperature 99.8 F H 07/23/25 15:02 Temperature Source Temporal Artery Scan 07/23/25 15:02 Pulse Rate 79 07/23/25 15:02 Respiratory Rate 16 07/23/25 15:02 Blood Pressure 125/84 07/23/25 15:02 Blood Pressure Mean 97 07/23/25 15:02 Blood Pressure Position Sitting 07/23/25 15:02 Pulse Oximetry 96 07/23/25 15:02 Oxygen Delivery Method Room Air 07/23/25 15:02 Vital Signs Temperature 99.8 F H 07/23/25 15:02 Pulse Rate 79 10/06/25 15:02 Respiratory Rate 16 07/23/25 15:02 Blood Pressure 125/84 07/23/25 15:02 Pulse Oximetry 96 07/23/25 15:02 Oxygen Delivery Method Room Air 07/23/25 15:02 Temperature 97.6 F 07/23/25 16:54 Pulse Rate 64 07/23/25 16:54 Respiratory Rate 18 07/23/25 16:54 Blood Pressure 124/74 07/23/25 16:54 Pulse Oximetry 93 07/23/25 16:54 Oxygen Delivery Method Room Air 07/23/25 16:54 Medications Administered Medications: Discontinued Medications Generic Name Dose Route Start Last Admin Trade Name Freq PRN Reason Stop Dose Admin Sodium Chloride 1,000 mls @ 1,000 mls/hr 07/23/25 15:20 07/23/25 16:13 0.9 % Sodium Chloride 1000 Ml IV 07/23/25 16:19 Infused .Q1H SERA Infusion Ketorolac Tromethamine 15 mg 07/23/25 15:19 07/23/25 15:30 Ketorolac 15 Mg/Ml Inj IVP 07/23/25 15:20 15 mg ONCE ONE Administration Morphine Sulfate 4 mg 07/23/25 15:19 07/23/25 15:30 Morphine 4 Mg/Ml Inj IVP 07/23/25 15:20 4 mg ONCE ONE Administration Ondansetron HCl 4 mg 07/23/25 15:19 07/23/25 15:44 Ondansetron 2 Mg/Ml Inj IVP 07/23/25 15:20 4 mg ONCE ONE Administration MDM - Abdominal Pain MDM Narrative Medical decision making narrative: 1. Appendicitis-acute uncomplicated appendicitis without evidence of abscess or perforation. Will hold off on antibiotics this patient will receive intraoperatively. Pain controlled with morphine Toradol and Zofran. 2. Abnormal EKG-patient noted to have Q-waves in 3 and AVF. T-wave inversion in V1 2 3. This is essentially similar to EKG from December of 2022. Patient notes a heart scan at [facility] in 2020 that was is normal and reassuring. Denies any recent history of chest pain, unusual shortness of breath. Troponin is negative. No evidence of ischemia at this time. 3. Disposition-patient will be going to the OR [facility] under the care of Dr. Gay. Patient represents low risk for surgery. Medical Records Attestation: I reviewed the patient's medical records. Lab Data Attestation: I reviewed the patient's lab results. Labs: Lab Results 07/23/25 07/23/25 07/23/25 Range/Units 15:30 16:30 16:56 WBC 13.56 H (4.50-11.00) K/uL RBC 4.87 (4.00-5.20) m/uL Hgb 14.2 (12.0-16.0) gm/dL Hct 43.5 (33.0-51.0) % MCV 89 (80-100) fL MCH 29 (26-34) pg MCHC 33 (32-36) gm/dL RDW Coeff of Juliana 12.1 (11.5-15.5) % Plt Count 331 (140-440) K/uL Neut % (Auto) 84.3 H (42.0-72.0) % Lymph % (Auto) 7.6 L (20-44) % [place] % (Auto) 7.2 (0.0-11.0) % Eos % (Auto) 0.7 (0.0-7.0) % Baso % (Auto) 0.1 (0.0-3.0) % Neut # (Auto) 11.40 H (1.7-7.0) K/uL Lymph # (Auto) 1.00 (0.90-2.90) K/uL [place] # (Auto) 1.00 H (0.00-0.90) K/UL Eos # (Auto) 0.10 (0.00-0.50) K/uL Baso # (Auto) 0.00 (0.00-0.30) K/uL Abs Immat Gran (auto) 0.00 (0.00-0.30) K/uL Imm/Tot Granulo (auto) 0.1 % Sodium 134 L (135-149) mmol/L Potassium 4.2 (3.6-5.1) mmol/L Chloride 99 (96-114) mmol/L Carbon Dioxide 28 (20-32) mmol/L Anion Gap 7 (7-15) mEq/L BUN 13 (7-30) mg/dL Creatinine 0.7 (0.5-1.5) mg/dL Estimated Creat Clear 43.77 Estimated GFR 95 ml/min Glucose 119 H (60-115) mg/dL Calcium 9.3 (8.4-10.6) mg/dL Total Bilirubin 0.7 (0.1-1.5) mg/dL AST 36 H (12-35) U/L ALT 32 (4-35) U/L Alkaline Phosphatase 72 (40-150) U/L Troponin I < 0.01 (0.01-0.04) ng/mL C-Reactive Protein 1.9 H (0.5-1.0) mg/dL Total Protein 8.3 (6.0-8.3) g/dL Albumin 4.7 (3.3-5.0) g/dL Lipase 60 (23-300) U/L Urine Color Yellow (Yellow) Urine Appearance Clear (Clear) Urine pH 7.0 (5.0-8.5) Ur Specific Sharon 1.010 (1.000-1.030) Urine Protein Negative (Negative) Urine Glucose (UA) Negative (Negative) Urine Ketones Trace A (Negative) Urine Blood 1+ A (Negative) Urine Nitrite Negative (Negative) Urine Bilirubin Negative (Negative) Urine Urobilinogen 0.2 (0.2-1.0) Ur Leukocyte Esterase Negative (Negative) Urine RBC 0-2 (0-2) Urine WBC 0-2 (0-5) Ur Squamous Epith Cells None (None-Few) Urine Bacteria None (None) Lab Acknowledgement Test Added Imaging Data CT scan - abdomen: Attestation: I have reviewed the pertinent imaging results. My impression: Large appendicolith is identified. Suggestive of appendicitis. Radiologist's impression: Lower chest: Scattered atelectasis. Liver: Unremarkable. Normal in size and attenuation. No suspicious masses. Gallbladder and bile ducts: Unremarkable. No stones or inflammation. No biliary dilatation. Pancreas: Unremarkable. No mass or inflammation. Spleen: Unremarkable. Normal in size. No masses. Adrenal glands: Unremarkable. No nodules. Kidneys: Unremarkable. No suspicious masses, stones, or hydronephrosis. GI tract: Moderately distended fluid-filled appendix with periappendiceal inflammatory stranding. Colonic diverticulosis without diverticulitis. No bowel obstruction. Vasculature: Abdominal aorta is normal in caliber. Mesenteric arteries are patent. Lymph nodes: No lymphadenopathy. Peritoneum/Abdominal Wall: Tiny fat containing umbilical hernia. No sign of mass or infiltration. No free air or significant free fluid. Pelvis: Unremarkable. Bones: Unremarkable for age. IMPRESSION: Findings suggestive of early acute uncomplicated appendicitis. No drainable fluid collections. Chest x-ray: Attestation: I have reviewed the pertinent imaging results. My impression: No evidence of infiltrate or pneumothorax. Radiologist's impression: Cardiovascular and mediastinum: Heart size and vasculature are normal in caliber and appearance. Lungs and pleural spaces: Low lung volumes with bibasilar atelectasis. No sign of infiltrate or mass. No sign of pleural effusion. No pneumothorax. Bones and soft tissues: No significant findings. IMPRESSION: Low lung volumes with bibasilar atelectasis. No acute or significant findings. ECG Data Attestation: I personally reviewed and interpreted this ECG as follows: ECG interpretation date: 07/23/25 Interpretation: EKG shows sinus bradycardia at a rate of 59. Patient does have Q-waves noted in 3 and AVF as well as T-wave inversion in V1 2 and 3. Otherwise no other acute changes. QT and RI intervals within normal limits. While abnormal, an EKG from December of 2022 is very similar. Discharge Plan Discharge Clinical Impression: Abnormal ECG Acute appendicitis Qualifiers: Acute appendicitis type: unspecified acute appendicitis type Qualified Code(s): K35.80 - Unspecified acute appendicitis Condition: Improved Prescriptions: No Action torsemide 10 mg tablet 10 mg PO DAILY amlodipine 2.5 mg tablet 2.5 mg PO DAILY nystatin [Klayesta] 100,000 unit/gram powder 1 applic topical 3XD rosuvastatin 10 mg tablet 10 mg PO QPM propranolol 20 mg tablet 20 mg PO DAILY Follow Up/Referrals: Aleshia Henderson PA-C [Primary Care Provider, Family Practice]
--- NOTE | 2025-07-23 15:19 | CRLHL7_ITS ---
For Patients: As a result of the Century Cures Act, medical imaging exams and procedure reports are released immediately into your electronic medical record. You may view this report before your referring provider. If you have questions, please contact your health care provider. INDICATION: Right lower quadrant and epigastric pain. TECHNIQUE: CT abdomen and pelvis acquired with 100 cc Isovue 370 IV contrast. COMPARISON: None. FINDINGS: Lower chest: Scattered atelectasis. Liver: Unremarkable. Normal in size and attenuation. No suspicious masses. Gallbladder and bile ducts: Unremarkable. No stones or inflammation. No biliary dilatation. Pancreas: Unremarkable. No mass or inflammation. Spleen: Unremarkable. Normal in size. No masses. Adrenal glands: Unremarkable. No nodules. Kidneys: Unremarkable. No suspicious masses, stones, or hydronephrosis. GI tract: Moderately distended fluid-filled appendix with periappendiceal inflammatory stranding. Colonic diverticulosis without diverticulitis. No bowel obstruction. Vasculature: Abdominal aorta is normal in caliber. Mesenteric arteries are patent. Lymph nodes: No lymphadenopathy. Peritoneum/Abdominal Wall: Tiny fat containing umbilical hernia. No sign of mass or infiltration. No free air or significant free fluid. Pelvis: Unremarkable. Bones: Unremarkable for age. IMPRESSION: Findings suggestive of early acute uncomplicated appendicitis. No drainable fluid collections. Please note that all CT scans at this facility use dose modulation, iterative reconstruction, and/or weight-based dosing when appropriate to reduce radiation dose to as low as reasonably achievable. Dictated by Tor Best MD @ 07/23/2025 4:33:44 PM (Electronically Signed)
[2025-07-23] MEDS: MORPHINE 4 MG/ML INJ IVP (15:30)
[2025-07-23 15:44] LABS: Hematocrit* 43.5 % (33.0-51.0); Hemoglobin* 14.2 gm/dL (12.0-16.0); Immature Granulocytes Pct Auto 0.1 %; Mean Corpuscular HGB Conc 33 gm/dL (32-36); Mean Corpuscular Hemoglobin 29 pg (26-34); Mean Corpuscular Volume 89 fL (80-100); RDW Coefficient of Variation % 12.1 % (11.5-15.5); Red Blood Count* 4.87 m/uL (4.00-5.20); White Blood Count* 13.56 K/uL (4.50-11.00)
[2025-07-23] MEDS: ONDANSETRON 2 MG/ML inj 4 MG IVP (15:44)
[2025-07-23 15:49] LABS: Immature Granulocytes Abs Auto 0.00 K/uL (0.00-0.30); Lymphocytes Absolute Auto 1.00 K/uL (0.90-2.90); Slide Review Reflex No
[2025-07-23 15:56] LABS: Albumin* 4.7 g/dL (3.3-5.0); Chloride* 99 mmol/L (96-114); Potassium* 4.2 mmol/L (3.6-5.1); Sodium* 134 mmol/L (135-149)
[2025-07-23 15:58] LABS: Blood Urea Nitrogen* 13 mg/dL (7-30); Creatinine* 0.7 mg/dL (0.5-1.5); Est. Creatinine Clearance* 43.77; Estimated Glomerular Filt Rate 95 ml/min
[2025-07-23 15:59] LABS: Alanine Aminotransferase* 32 U/L (4-35); Alkaline Phosphatase* 72 U/L (40-150); Anion Gap 7 mEq/L (7-15); Aspartate Amino Transferase* 36 U/L (12-35); Bilirubin Total* 0.7 mg/dL (0.1-1.5); Calcium* 9.3 mg/dL (8.4-10.6); Carbon Dioxide* 28 mmol/L (20-32); Glucose* 119 mg/dL (60-115); Total Protein* 8.3 g/dL (6.0-8.3)
--- NOTE | 2025-07-23 16:42 | CRLHL7_ITS ---
For Patients: As a result of the Century Cures Act, medical imaging exams and procedure reports are released immediately into your electronic medical record. You may view this report before your referring provider. If you have questions, please contact your health care provider. INDICATION: Shortness of breath. TECHNIQUE: Chest 1 views. COMPARISON: None. FINDINGS: Cardiovascular and mediastinum: Heart size and vasculature are normal in caliber and appearance. Lungs and pleural spaces: Low lung volumes with bibasilar atelectasis. No sign of infiltrate or mass. No sign of pleural effusion. No pneumothorax. Bones and soft tissues: No significant findings. IMPRESSION: Low lung volumes with bibasilar atelectasis. No acute or significant findings. Dictated by Tor Best MD @ 07/23/2025 5:22:32 PM (Electronically Signed)
[2025-07-23 16:45] LABS: Appearance Urine Clear (Clear)
--- NOTE | 2025-07-23 18:05 | PM.GSHP ---
History of Present Illness History of Present Illness Date Seen: 07/23/25 Chief complaint: pain in stomach Narrative: Gabbi De Los Santos is a 64 year old female who presents to emergency room with lower abdominal pain. Patient states that the pain started in the morning. Throughout the morning the pain was getting significantly worse and patient finally came into the emergency room. She is describing the pain as ?painful?. Patient had nausea but no vomiting. She was not passing gas but had 2 loose bowel movements in the morning. She denied fevers. I have personally reviewed her workup in the emergency room. Patient was found to have WBC of 13.5. An abdominal CT was obtained that showed dilated will enhancing appendix concerning for early acute appendicitis. There was no periappendiceal abscess. Patient's EKG showed Q-wave in III and AVF and T-wave inversions in V1,V2, V3. Patient's troponin is negative. Her EKG is similar in appearance to old EKG from October 2024. Patient denies chest pain or shortness of breath. Review of Systems Narrative: General: no fevers HENT: no problems swallowing CV: no shortness of breath Resp: no cough GI: No nausea, vomiting, abdominal pain : no dysuria, no increased urinary frequency, no hematuria Skin: no new rashes Musculoskeletal: no back pain Neuro: no muscle weakness Psyche: no depression, no anxiety PFSH PFSH Medical History Deep vein thrombosis (DVT) of proximal vein of left lower extremity ?I82.4Y2 - Acute embolism and thrombosis of unspecified deep veins of left proximal lower extremity (ICD-10) Hypertension ?I10 - Essential (primary) hypertension (ICD-10) Surgical History History of total left knee replacement (11/27/24) ?Z96.652 - Presence of left artificial knee joint (ICD-10) Status post medial meniscectomy of knee (10/28/22) ?Z98.890 - Other specified postprocedural states (ICD-10) H/O left wrist surgery ?Z98.890 - Other specified postprocedural states (ICD-10) Family History Sister Colorectal cancer Paternal Grandfather Diabetes Paternal Grandmother Ovarian cancer Son Cancer Mother Diabetes High blood pressure Father High blood pressure Social History Narrative: Patient is retired Smoking Status: Never smoker Do you use any of these nicotine containing products: None Second hand tobacco smoke exposure: No How often do you have a drink containing alcohol: never How often do you have six or more drinks on one occasion: Never AUDIT-C Alcohol total score: 0 Non-prescribed substance use: denies use Caffeine: Yes (daily coffee) Are you using contraception or practicing any form of control: No Meds Home Medications and Allergies Home Medications ?Medication ?Instructions ?Recorded ?Confirmed ?Type torsemide 10 mg tablet 10 mg PO DAILY 05/08/22 07/23/25 History amlodipine 2.5 mg tablet 2.5 mg PO DAILY 09/26/24 07/23/25 History propranolol 20 mg tablet 20 mg PO DAILY 11/21/24 07/23/25 History nystatin 100,000 unit/gram topical 1 applic topical 3XD 11/23/24 07/23/25 History powder (Klayesta) rosuvastatin 10 mg tablet 10 mg PO QPM 07/23/25 07/23/25 History Allergies Allergy/AdvReac Type Severity Reaction Status Date / Time nickel Allergy Unknown Verified 07/23/25 15:08 Exam Narrative: Exam Narrative: General appearance: Alert, cooperative, and in no distress Pulmonary: Chest symmetric, lungs clear bilaterally Cardiovascular Heart: Regular rate and rhythm, S1, S2, no murmurs/rubs/gallops Gastrointestinal Abdominal: soft, not distended, tender to palpation in the right lower quadrant with rebound tenderness. Patient has pain when she is moved in bed from sitting down to lying position. Skin: Normal skin color, texture, and turgor. No rashes or lesions. Psychiatric: Alert, cooperative, normal affect. Const: Vital Signs, click to edit/add: Vital Signs - 24 hr 07/23/25 15:02 07/23/25 16:54 Temperature 99.8 F H 97.6 F Pulse Rate [Pulse Oximeter] 79 64 Respiratory Rate 16 18 Blood Pressure [Ri ght Upper Arm] 125/84 124/74 Pulse Oximetry 96 93 Oxygen Delivery Me thod Room Air Room Air Results Results EKG: image reviewed (Q-waves in III, AVF and T-wave inversions in V1, V2, V3. This is similar to 11/11 EKG.) Progress Note:A&P Assessment and plan (1) Acute appendicitis: Status: Acute Assessment and Plan: 64-year-old female presents with acute appendicitis. I discussed with the patient her sister my clinical findings. We talked but her laboratory findings and her CT images. On CT patient has evidence of dilated wall enhancing appendix concerning for acute appendicitis. There is a small appendicolith in the appendix. On clinical exam she has tenderness to palpation in the right lower quadrant. Given patient's clinical history, I recommended to proceed with laparoscopic appendectomy. The procedure was discussed in detail. The risks associated procedure including infection, bleeding, injury to intra-abdominal organs, and the need for additional procedures, as well as cardiopulmonary complications were all discussed with the patient, and she agreed to proceed.
[2025-07-23] MEDS: PIPERACILLIN/TAZOBACTAM 3.375 GM INJ IVPB (18:40)
[2025-07-23] MEDS: BUPIVACAINE 0.25% 30 ML INJECTION (19:00)
[2025-07-23] MEDS: LIDOCAINE 1%-EPI 1:100,000 20 ML INFILTRATI (19:00)
[2025-07-23] MEDS: LACTATED RINGERS 1000 ML 1,000 ML 125 ML IV ×2 (19:30→20:10)
--- NOTE | 2025-07-23 20:34 | PM.GSPRC ---
Operative Note Date of procedure: 07/23/25 Pre-op diagnosis: 1. Acute appendicitis. Post-op diagnosis: Same Type of Procedure: 1. Laparoscopic appendectomy. Indications: 64-year-old female presented to emergency room with lower abdominal pain that migrated to the right lower quadrant. The pain started early in the morning today. The pain was getting progressively worse and patient was having a hard time moving because of the pain. She had nausea but no vomiting. She had 2 bowel movements today in the morning. Upon her workup in the emergency room she was found to have elevated WBC of 13. An abdominal CT was obtained that showed dilated wall enhancing appendix with no periappendiceal abscess. On clinical exam patient had tenderness to palpation in the right lower quadrant with rebound tenderness. Given patient's clinical history and her physical exam, acute appendicitis was suspected, and laparoscopic appendectomy was recommended. The procedure was discussed in detail. The risks associated procedure including infection, bleeding, injury to intra-abdominal organs, and the need for additional procedures were all discussed with the patient, and she agreed to proceed. Procedure Description: After discussing the risks and benefits of the procedure, the patient signed informed consent.? The operative site was marked and the patient was brought to the operating room and placed on the operating table in supine position.? Care was taken to pad the patient's pressure points.?? The patient was then intubated by anesthesia.?? The operative site was then prepped and draped in the usual sterile fashion.? A time-out was then performed. A 5-mm laparoscopy port was placed in the left upper quadrant guided by a 5-mm laparoscope placed into a translucent trochar. Passage through the layers of the abdominal wall was visualized with the laparoscope. A pneumoperitoneum was established. A 30-degree 5-mm laparoscope was advanced into the abdomen. The abdomen was briefly surveyed, and there was no evidence of diffuse peritonitis. A 12-mm port and a 5-mm port were placed suprapubically, respectively, under direct visualization by laparoscope. Left upper quadrant entrance port was then examined intraabdominally by placing the camera through the suprapubic port and no intraabdominal injury was seen. The patient was placed in Trendelenburg position, allowing the abdominal contents to shift cephalad. The small bowel was moved toward the midline in the abdomen and this allowed for identification of the appendix. It appeared to be inflamed. Appendiceal mesentery was edematous. The appendiceal mesentery was then skeletonized with Harmonic scalpel and divided with Harmonic scalpel at the base of the appendix. Appendiceal artery was identified and was clipped with 2 5 mm clips on the patient's side and a single clip on the specimen side and divided with scissors. Terminal ileal fat pad was adherent to the appendiceal mesentery. This was mobilized off the appendiceal mesentery with Harmonic scalpel. The terminal ileum entrance into the cecum was identified and was adjacent to the appendiceal base. When the appendiceal base was clearly seen, a vascular load Endo-VAIDM stapler was advanced through the 12-mm port into the abdomen and appendix was stapled off at its base. Care was taken not to encroach on to the terminal ileum. The appendix was then placed in an endoscopic retrieval bag and extracted from the abdomen through the 12-mm port. The abdomen was surveyed for hemostasis. Slow bleeding was seen from the appendiceal staple line. This was controlled with a single 5 mm clip. Appendiceal staple line was then identified and laterally a serosal tear was seen immediately adjacent to the staple line. This was thought to be due to thickened appendiceal base. Given the proximity of terminal ileum going into the cecum, I elected to dunk the appendiceal staple line with 2 interrupted 0-0 Vicryl sutures. The sutures were placed intracorporeally with extracorporeal knot tying. Omentum was then placed over appendiceal staple line. The 12-mm port was withdrawn and the fascial defect was closed with 0-0 Vicryl stitch using Missael Moshe needle under direct visualization. The 5-mm port was removed under direct visualization. The left upper quadrant port was used to evacuate the pneumoperitoneum and then withdrawn. The skin incisions were closed with 4-0 monocryl. Steri-Strips were applied over the incisions. All counts were correct at the end of the case. The patient tolerated this procedure well and was transferred to PACU in stable condition. Findings: Inflamed and dilated appendix with inflammation involving appendiceal base. No evidence of perforation. Anesthesia: GETA Surgeon: Luther Gay MD Estimated blood loss (mL): 5 Specimen: Appendix Condition: stable Disposition: PACU
--- NOTE | 2025-07-23 20:36 | P.ANES_ITS ---
Anesthesia Charges Start Date/Time Anesthesia Start Date: 07/23/25 Anesthesia Start Time: 18:32 Stop Date/Time Anesthesia Stop Date: 07/23/25 Anesthesia Stop Time: 20:32 Coding CPT Codes CPT Codes: ANESTH SURG LOWER ABDOMEN - 42545 ([id number]) P2 - PATIENT W/MILD SYST DISEASE, QZ - REFLEXOLOGIST SVC W/O PRICE ECONOMIST BY
--- NOTE | 2025-07-23 20:36 | W.ANESCHARGE ---
Anesthesia Charges Start Date/Time Anesthesia Start Date: 07/23/25 Anesthesia Start Time: 18:32 Stop Date/Time Anesthesia Stop Date: 07/23/25 Anesthesia Stop Time: 20:32 Coding CPT Codes CPT Codes: ANESTH SURG LOWER ABDOMEN - 26435 ([id number]) P2 - PATIENT W/MILD SYST DISEASE, QZ - THIRD LOADER SVC W/O LOCOMOTIVE CRANE OPERATOR HELPER BY
[2025-07-24] VITALS: BP 121/72; PULSE 64; RESP 18; TEMP 36.5; O2SAT 90
[2025-07-24] MEDS: PIPERACILLIN/TAZOBACTAM 3.375 GM in 0.9 % SODIUM CHLORIDE Mini-bag 100 ML IVPB ×2 (00:28→06:02)
[2025-07-24 01:00] VITALS: BP 111/71; PULSE 63; RESP 16; TEMP 36.6; O2SAT 91
[2025-07-24 02:00] VITALS: BP 108/76; PULSE 67; RESP 16; TEMP 36.6; O2SAT 88
[2025-07-24 03:00] VITALS: BP 113/65; PULSE 66; RESP 16; O2SAT 92
[2025-07-24] MEDS: LACTATED RINGERS 1000 ML 1,000 ML 100 ML IV (04:51)
[2025-07-24] MEDS: HYDROCODONE-ACETAMIN 5-325 MG 1 TAB PO (05:44)
--- NOTE | 2025-07-24 06:21 | PC.NURSE ---
Pt is alert and oriented x3. Afebrile. Pt reports 0-4/10 abdominal pain, managed with ice pack, PRN medications. Pt's lap sites are CDI. Pt is up SBA with IV pole, voiding and tolerating a regular diet.
[2025-07-24 07:00] VITALS: RESP 18; O2SAT 92
--- NOTE | 2025-07-24 07:17 | P.DS_ITS ---
DS: Providers Provider Date Seen: 07/24/25 Primary care physician: Aleshia Henderson PA-C Attending Physician on discharge: Luther Gay MD DS: Diagnosis Discharge Diagnosis (1) S/P laparoscopic appendectomy: Status: Acute DS: Summary Hospital Course Hospital Course: Patient presented to emergency room with acute appendicitis. She underwent laparoscopic appendectomy. She did well postoperatively. On the day of discharge her pain was controlled with p.o. medications, she ambulated, she denied nausea or vomiting and passed gas. Time Spent with Patient Time attestation: Total time spent providing and/or coordinating discharge services: Exam Narrative: Exam Narrative: Abdomen is soft, not distended, minimally tender to palpation suprapubically near the 12 mm port. Laparoscopic incisions are covered with clean steroids. There is emy-incisional ecchymosis surrounding the left suprapubic port (12 mm port). Const: Vital Signs, click to edit/add: Vital Signs - 24 hr 07/23/25 15:02 07/23/25 16:54 07/23/25 20:29 Temperature 99.8 F H 97.6 F 98.6 F Pulse Rate 67 Pulse Rate [Pulse Oximeter] 79 64 Respiratory Rate 16 18 16 Blood Pressure 125/73 Blood Pressure [Le ft Arm] Blood Pressure [Ri ght Upper Arm] 125/84 124/74 Pulse Oximetry 96 93 100 Oxygen Delivery Me thod Room Air Room Air Room Air Oxygen Flow Rate 07/23/25 20:35 07/23/25 20:40 07/23/25 20:45 Temperature Pulse Rate 66 71 65 Pulse Rate [Pulse Oximeter] Respiratory Rate 16 16 16 Blood Pressure 123/71 110/48 L 117/74 Blood Pressure [Le ft Arm] Blood Pressure [Ri ght Upper Arm] Pulse Oximetry 100 91 92 Oxygen Delivery Me thod Oxygen Flow Rate 07/23/25 20:50 07/23/25 20:55 07/23/25 21:00 Temperature 99.7 F H Pulse Rate 60 65 66 Pulse Rate [Pulse Oximeter] Respiratory Rate 16 16 16 Blood Pressure 112/71 122/71 124/77 Blood Pressure [Le ft Arm] Blood Pressure [Ri ght Upper Arm] Pulse Oximetry 95 95 92 Oxygen Delivery Me thod Room Air Oxygen Flow Rate 07/23/25 21:11 07/23/25 21:15 07/23/25 21:30 Temperature 96.1 F L 97.5 F L 97.5 F L Pulse Rate Pulse Rate [Pulse Oximeter] 64 60 58 L Respiratory Rate 16 16 16 Blood Pressure Blood Pressure [Le ft Arm] 114/69 121/72 125/73 Blood Pressure [Ri ght Upper Arm] Pulse Oximetry 90 88 94 Oxygen Delivery Me thod Room Air Room Air Nasal Cannula Oxygen Flow Rate 1 07/23/25 21:45 07/23/25 22:00 07/23/25 22:30 Temperature 97.9 F 97.7 F 97.8 F Pulse Rate Pulse Rate [Pulse Oximeter] 60 62 71 Respiratory Rate 16 18 18 Blood Pressure Blood Pressure [Le ft Arm] 120/73 120/75 114/55 L Blood Pressure [Ri ght Upper Arm] Pulse Oximetry 92 92 90 Oxygen Delivery Me thod Nasal Cannula Nasal Cannula Nasal Cannula Oxygen Flow Rate 1 1 1 07/23/25 23:00 07/23/25 23:00 07/24/25 00:00 Temperature 97.6 F 97.7 F Pulse Rate Pulse Rate [Pulse Oximeter] 61 64 Respiratory Rate 18 16 18 Blood Pressure Blood Pressure [Le ft Arm] 120/74 121/72 Blood Pressure [Ri ght Upper Arm] Pulse Oximetry 90 90 90 Oxygen Delivery Me thod Room Air Nasal Cannula Room Air Oxygen Flow Rate 1 07/24/25 01:00 07/24/25 02:00 07/24/25 03:00 Temperature 97.9 F 97.8 F Pulse Rate Pulse Rate [Pulse Oximeter] 63 67 66 Respiratory Rate 16 16 16 Blood Pressure Blood Pressure [Le ft Arm] 111/71 108/76 113/65 Blood Pressure [Ri ght Upper Arm] Pulse Oximetry 91 88 92 Oxygen Delivery Me thod Room Air Room Air Room Air Oxygen Flow Rate DS: Data Data Completed and Pending Labs on day of discharge: Labs from last 24 hours 07/23/25 07/23/25 07/23/25 16:56 16:30 15:30 WBC 13.56 H RBC 4.87 Hgb 14.2 Hct 43.5 MCV 89 MCH 29 MCHC 33 RDW Coeff of Juliana 12.1 Plt Count 331 Neut % (Auto) 84.3 H Lymph % (Auto) 7.6 L [place] % (Auto) 7.2 Eos % (Auto) 0.7 Baso % (Auto) 0.1 Neut # (Auto) 11.40 H Lymph # (Auto) 1.00 [place] # (Auto) 1.00 H Eos # (Auto) 0.10 Baso # (Auto) 0.00 Abs Immat Gran (auto) 0.00 Imm/Tot Granulo (auto) 0.1 Sodium 134 L Potassium 4.2 Chloride 99 Carbon Dioxide 28 Anion Gap 7 BUN 13 Creatinine 0.7 Estimated Creat Clear 43.77 Estimated GFR 95 Glucose 119 H Calcium 9.3 Total Bilirubin 0.7 AST 36 H ALT 32 Alkaline Phosphatase 72 Troponin I < 0.01 C-Reactive Protein 1.9 H Total Protein 8.3 Albumin 4.7 Lipase 60 Urine Color Yellow Urine Appearance Clear Urine pH 7.0 Ur Specific [place] 1.010 Urine Protein Negative Urine Glucose (UA) Negative Urine Ketones Trace A Urine Blood 1+ A Urine Nitrite Negative Urine Bilirubin Negative Urine Urobilinogen 0.2 Ur Leukocyte Esterase Negative Urine RBC 0-2 Urine WBC 0-2 Ur Squamous Epith Cells None Urine Bacteria None Lab Acknowledgement Test Added Discharge Plan Discharge Disposition: Home w/ Parent or Adult Discharging Surgeon: Luther Gay Follow-Up Appointment: 2 weeks [facility] Prescriptions: New hydrocodone-acetaminophen 5-325 mg tablet 1 tab PO Q6H PRN (Reason: pain) Qty: 15 0RF No Action torsemide 10 mg tablet 10 mg PO DAILY amlodipine 2.5 mg tablet 2.5 mg PO DAILY nystatin [Klayesta] 100,000 unit/gram powder 1 applic topical 3XD rosuvastatin 10 mg tablet 10 mg PO QPM propranolol 20 mg tablet 20 mg PO DAILY Activity Level: No strenuous activity Activity Detail: No strenuous activity or lifting more than 15-20 lbs for 4-6 weeks. Take laxative such as MiraLax daily for the first 7-10 days after surgery to prevent constipation. Leave Steri-Strips on for the next 7-10 days. Okay to shower in 24 hours after surgery. Avoid swimming or submerging incision under water (except for showering) for 2 weeks. Discharge Diet: Regular Patient Instructions: Sleep Apnea (DC), General Anesthesia (DC), NH+C Post- Operative Instructions: Appendectomy Follow-up: Luther Gay MD [Staff Physician, General Surgery] Discharge Orders: Discharge Order (Routine); Ordered 07/24/25 Ordered By: Luther Gay
[2025-07-24 07:20] VITALS: BP 111/70; PULSE 66; RESP 18; TEMP 36.4; O2SAT 90
[2025-07-24] MEDS: ACETAMINOPHEN 325 MG TABLET 650 MG PO (07:27)
[2025-07-24] MEDS: TORSEMIDE 5 MG TABLET 10 MG PO (08:21)
[2025-07-24] MEDS: PROPRANOLOL 20 MG TABLET PO (08:21)
--- NOTE | 2025-07-24 09:38 | PC.NURSE ---
End of shift report [id number]: Pleasant and cooperative with cares. Pain well managed with current regimen. Laparoscopic incisions clean, dry and intact. Bowel sounds active x 4 quadrants. Tolerating regular diet well. Discharge instructions reviewed and verbalized understanding. Patient discharged via wheelchair to private vehicle.
== END 2025-07-24 09:35 | disposition home or self-care (01) ==
LOC: ED 17:59 → SS 18:33 → MEDSURG 21:28
PROVIDERS: Emergency Provider Family Medicine; PCP Physician Assistant Medical; Visit Provider Surgery
PROC: 0DTJ4ZZ Resection of Appendix, Percutaneous Endoscopic Approach (ICD-10-PCS; CPT 44970; principal; 2025-07-23 18:30)
DX: K35.80 Unspecified acute appendicitis (principal); R94.31 Abnormal electrocardiogram [ECG] [EKG]; I10 Essential (primary) hypertension; Z86.718 Personal history of other venous thrombosis and embolism
CPT/HCPCS: 44970; 00840; 36415; 71045; 74177; 80053; 81001; 83690; 84484; 85025; 86140; 93005; 99284; 99285; A9270; J0330; J0665; J1100; J1171; J1630; J1885; J2270; J2371; J2405; J2543; J2704; J3010; J3490; J7030; J7120; Q9967